=== PATIENT | female | born 1960 | race Caucasian/White ===

== ENCOUNTER 2023-05-07 08:36 | Outpatient (OUT) | payer MEDICARE, SELFPAY ==
[2023-05-07 09:22] LABS: Basophils Percent Auto 0.8 % (0.2-2.0); Eosinophils Absolute Auto 0.4 10^3/uL (0.0-0.7); Eosinophils Percent Auto 8.2 % (0.9-7.0); Hematocrit 39.1 % (36.0-48.0); Hemoglobin 13.1 g/dL (12.0-16.0); Immature Granulocytes Abs Auto 0.01 10^3/uL (0.00-0.03); Immature Granulocytes Pct Auto 0.2 % (0.0-0.5); Lymphocytes Absolute Auto 1.3 10^3/uL (1.2-3.8); Lymphocytes Percent Auto 24.9 % (20.5-60.0); Mean Corpuscular HGB Conc 33.5 g/dL (29.9-35.2); Mean Corpuscular Hemoglobin 29.4 pg (26.7-34.0); Mean Corpuscular Volume 87.9 fL (81.0-99.0); Mean Platelet Volume 11.1 fL (9.5-13.5); Monocytes Absolute Auto 0.3 10^3/uL (0.3-0.8); Monocytes Percent Auto 5.9 % (1.7-12.0); Neutrophils Absolute Auto 3.1 10^3/uL (1.4-6.5); Platelet Count 244 10^3/uL (150-450); Red Blood Count 4.45 10^6/uL (4.20-5.40); Red Cell Distribution Width 13.5 % (11.0-15.0); White Blood Count 5.1 10^3/uL (4.0-11.0)
== END 2023-05-07 08:37 | disposition home or self-care (01) ==
LOC: LAB 08:40
PROVIDERS: PCP Family Medicine
DX: H02.839 Dermatochalasis of unspecified eye, unspecified eyelid (principal)
CPT/HCPCS: 36415; 85025

== ENCOUNTER 2023-06-03 09:04 | Outpatient (OUT) | payer MEDICARE, SELFPAY ==
--- NOTE | 2023-06-03 09:12 | XR_ITS ---
[address] [address] Patient Name: RADHA ALONZO MRN: [id number] date: 1960 Sex: F Assigned Patient Location: [facility] Current Patient Location: [facility] Accession/Order Number: [id number] Exam Date: 06/03/2023 09:17 Report Date: 06/03/2023 10:06 At the request of: DORON BAUMANN Procedure: XR shoulder RT min 2V EXAM: XR shoulder RT min 2V HISTORY: Right Shoulder Pain M25.511 COMPARISON: None. TECHNIQUE: 3 views FINDINGS: No acute fracture or dislocation. Mild degenerative change of the acromioclavicular and glenohumeral joints. Unremarkable soft tissues. XR/XR shoulder RT min 2V IMPRESSION: Mild degenerative changes as above. Electronically authenticated by: ELIZABETH MCLAUGHLIN Date: 06/03/2023 10:06
== END 2023-06-03 09:05 | disposition home or self-care (01) ==
LOC: RAD 09:04
PROVIDERS: PCP Family Medicine; Visit Provider Orthopaedic Surgery
DX: M25.511 Pain in right shoulder (principal)
CPT/HCPCS: 73030

== ENCOUNTER 2024-05-26 09:53 | Outpatient (OUT) | payer MEDICARE, SELFPAY ==
--- NOTE | 2024-05-26 | CONS_ITS ---
CONSULTATION DATE: 05/26/2024 TO: Dr. Duran CHIEF COMPLAINT: Includes right sided groin pain/hip pain. HISTORY OF PRESENT ILLNESS: Review of systems, past medical/surgical history were obtained and documented on the health questionnaire and is available upon request. She is a 64-year-old female who recently underwent an L4-5 lumbar interbody fusion, details of which are unavailable. Prior to the fusion, she reports she had been having right groin pain for approximately one year. She reports her lower back pain is dramatically improved after a successful fusion; however, she has had some residual right sided groin pain and hip pain post surgically, which has not improved from the surgery. She rates it between 4-7/10 pain, sharp in character, increased with activity such as weight bearing maneuvers, transitioning maneuvers. She feels most comfortable in the semi-recumbent position. She denies any change in bowel and bladder habits, or new sensorimotor change in the lower extremities. She has been prescribed Tylenol and tizanidine. She reports she has been not using them recently, and her RAFFY on today?s visit is 45%. EXAM: Her examination is notable for patient having no clinical radiculopathy or myelopathy involving the lower extremities. She did have positive right sided FABERs sign with a moderate amount of tenderness of her right adductor jeremy and mild pain with right hip flexion. IMPRESSION: Patient with chronic pain secondary to right hip, possibly some degenerative joint disease. RECOMMENDATIONS: Obtain right hip films and patient with a diagnostic right hip joint injection under fluoroscopic guidance. I have asked her to resume her tizanidine, 4 mg pills, half a pill at h.s. As part of providing excellent, safe, comprehensive care, the following was completed at our patient's visit: 1. A medication reconciliation and review to ensure accurate knowledge of current/active medications, including asking our patients to inform us about any [id number]-[id number] medications or herbal remedies/nutritional supplements/alternative remedies. 2. A review to specifically ensure our patients have had annual screening for: elevated body mass index (BMI, see intake chart for exact total), tobacco use, screening for depression, and screening for unhealthy alcohol use. When screening is concerning, patients are provided with education and the specific recommendation to discuss the concerning health issue and treatment options with their primary care provider. RADHA
== END 2024-05-26 09:54 | disposition home or self-care (01) ==
LOC: PM 09:57
PROVIDERS: PCP Family Medicine; Visit Provider Anesthesiology Pain Medicine
DX: M25.551 Pain in right hip (principal)
CPT/HCPCS: 73502; G0463

== ENCOUNTER 2024-05-26 11:15 | Outpatient (OUT) | payer MEDICARE, SELFPAY ==
--- NOTE | 2024-05-26 11:26 | XR_ITS ---
The [address] [address] Patient Name: RADHA ALONZO MRN: [id number] date: 1960 Sex: F Assigned Patient Location: [facility] Current Patient Location: Accession/Order Number: [id number] Exam Date: 05/26/2024 11:31 Report Date: 05/27/2024 06:44 At the request of: TERESO VARELA Procedure: XR hip RT min 2V PROCEDURE: XR hip RT min 2V HISTORY: Right Hip Pain COMPARISON: XR hip right 11/23/2015 FINDINGS: BONES:No fracture, acute abnormality, or significant arthropathy. SOFT TISSUES:No visible soft tissue swelling. EFFUSION:None visible. OTHER: Negative. XR/XR hip RT min 2V IMPRESSION: 1. No acute bone abnormality or significant degenerative joint disease. Electronically authenticated by: DORON HERNANDEZ Date: 05/27/2024 06:44
== END 2024-05-26 11:16 | disposition home or self-care (01) ==
LOC: RAD 11:22
PROVIDERS: PCP Family Medicine; Visit Provider Anesthesiology Pain Medicine
DX: M25.551 Pain in right hip (principal)
CPT/HCPCS: 73502

== ENCOUNTER 2024-06-23 07:43 | Day surgery (SDC) | payer MEDICARE, SELFPAY ==
--- OUTSIDE RECORDS SUMMARY | 2024-06-23 07:48 | XMS_ITS | CCD ---
Author Organization [facility] Inform ion Partnership [facility] Care Team Providers Care Sour Bleaching Pleater Name Role Phone Unknown, Referring Provider Unavailable Unav MODESTO Macdonald Primary Care Physician Adilene Cantor Unavailable Unavailable RACHEL, DR SHIRLEY Davenport Admitting Unavailable RACHEL, DR SHIRLEY Davenport Consulting Unavailable WEST, DR SHIRLEY Davenport Attending Unavailable WEST, DR SHIRLEY Davenport Attending Unavailable WEST, DR SHIRLEY Davenport Admitting Unavailable WEST, DR SHIRLEY Davenport Consulting Unavailable WEST, DR SHIRLEY Davenport Admitting Unavailable WEST, DR SHIRLEY Davenport Attending Unavailable REFERRAL, SELF Attending Unavailable REFERRAL, SELF Referring Unavailable DAGMAR NIEVES Consulting Unavailable REFERRAL, SELF Admitting Unavailable DAGMAR NIEVES Consulting Unavailable LIZBETH, MODESTO Consulting Unavailable LIZBETH, MODESTO Consulting Unavailable LIZBETH, DAGMAR Taylor Admitting Unavailable DAGMAR NIEVES Attending Unavailable DAGMAR NIEVES Referring Unavailable Herberth GIBBS Attending Unavailable Tyler Stern Admitting Unavailable Leena, Tyler Ross Attending Unavailable Tyler Stern Referring Unavailable Johnathan ELMORE, Bk Henriquez Attending Unavailab remedios Nieves DO, Modesto Pedersen Primary Care Unavailab remedios Nieves DO, Modesto Pedersen Primary Care Unavailab Katarzyna ELMORE, Bk Henriquez Attending Unavailab remedios Mann MD, Bk Henriquez Attending Unavailab remedios Nieves DO, Modesto Pedersen Primary Care Unavailab remedios Mann MD, Bk Henriquez Attending Unavailab le Lizbeth SANTOYO, Modesto Pedersen Primary Care Unavailab remedios Nieves DO, Modesto Pedersen Referring Unavailab Favian Wyatt PA-C Attending Unavail able Lizbeth SANTOYO, Modesto Pedersen Primary Care Unavailab Katarzyna ELMORE, Bk Henriquez Attending Unavailab le Lizbeth SANTOYO, Modesto Pedersen Primary Care UnavailRENETTA Chaves Attending Unavailable KAMI HERNÁNDEZ Attending Unavailable MODESTO NIEVES Referring Unavailable KAMI HERNÁNDEZ Referring Unavailable DAGMAR NIEVES Attending Unavailable DAGMAR NIEVES Referring Unavailable KAMI HERNÁNDEZ Referring Unavailable FAVIAN GODWIN Referring Unavailable NOEMI COOK Attending Unavailable FAVIAN GODWIN Referring Unavailable NOEMI COOK Attending Unavailable FAVIAN GODWIN Referring Unavailable REE LIEBERMAN Attending Unavailable KAMI HERNÁNDEZ Attending Unavailable RENETTA FINK Referring Unavailable ZOILA JUAREZIN Fallon Referring Unavailable MODESTO NIEVES Primary Care Unavailable ANN MANNIE A Admitting Unavailable ANN, MANNIE A Attending Unavailable ANN MANNIE A Referring Unavailable MANNIE CURRIE Attending Unavailable MODESTO NIEVES Primary Care Unavailable ANN, MANNIE A Attending Unavailable ANN MANNIE A Referring Unavailable MODESTO NIEVES Primary Care Unavailable Allergies Allergy Classification Reported Allergen(s) Allergy Type Date of Onset Reaction(s) Facility (18 sources) Etodolac; Translations: [etodolac] Drug Allergy 9 Unknown, Itching [facility] (2 sources) Etzanda; Translations: [Lodine] Drug Allergy [facility] Rep[facility] Medications Current Medications Medication Drug Class(es) Dates Sig (Normalized) Sig (Original) acetaminophen 325 mg / HYDROcodone bitartrate 5 mg oral tablet (14 sources) Opioid Agonist Start: 08-02-2021 [facility] 325 mg-5 mg oral tablet See Instructions, for pain, 40 tab(s), Refill(s) 0, 1-2 tab(s) Oral q4hr, [facility]/pharmacy #[id number], 160, cm, 07/28/21 12:35:00 EDT, Height/Length Dosing, 65.3, kg, 07/28/21 12:35:00 EDT, Weight Dosing Start Date: 08/02/21 Status: Ordered Start: 07-28-2021 take 1 tablet by hayes th every six hours as needed for pain acetaminophen-hydrocodone 325 mg-5 mg or al tablet 1 tab(s), Oral, q6hr as needed for pain, Refill(s) 0 Start Date: 07/28/21 Status: Ordered aspirin 81 mg delayed release oral tablet (7 sources) Platelet Aggregation Inhibitor, Nonsteroidal Anti-inflammatory Drug Start: 05-02-2022 take 1 mg by mouth once daily aspirin 81 mg Oral EC Tab mg tab(s), Oral, Daily, Refills(s) 0 Start Date: 05/02/22 Status: Ordered Biotin (7 sources) Start: 05-02-2022 biotin Oral, Daily, Refills(s) 0 Start Date: 05/02/22 Status: Ordered Calcium (7 sources) Phosphate Binder, Calcium Start: 09-18-2016 take 600 mg by mouth twice daily Calcium 600+D 600 mg, Oral, BID, Refill(s) 0, Prophylaxis Start Date: 09/18/16 Status: Ordered celecoxib 100 mg oral capsule (7 sources) Nonsteroidal Anti-inflammatory Drug Start: 05-31-2021 take 1 capsule by mouth twice daily as needed for pain CeleBREX 100 mg Cap 100 mg = 1 cap(s), Oral, BID, PRN Pain, # 60 cap(s), Refills(s) 0, Pharmacy: [facility]/pharmacy #[id number], 160, cm, 05/11/21 12:28:00 EDT, Height/Length Dosing, 66.8, kg, 05/11/21 12:28:00 EDT, Weight Dosing Start Date: 05/31/21 Status: Ordered CoQ10 100 mg oral capsule (7 sources) Start: 05-02-2022 take 1 mg by mouth once daily CoQ10 100 mg oral capsule mg cap(s), Oral, Daily, Refills(s) 0 Start Date: 05/02/22 Status: Ordered docusate sodium 100 mg oral capsule (7 sources) Start: 08-02-2021 take 1 capsule by mouth twice daily as needed for constipation Colace 100 mg Cap 100 mg = 1 cap(s), Oral, BID, PRN for constipation, # 20 cap(s), Refills(s) 0, Pharmacy: [facility]/pharmacy #[id number], 160, cm, 07/28/21 12:35:00 EDT, Height/Length Dosing, 65.3, kg, 07/28/21 12:35:00 EDT, Weight Dosing Start Date: 08/02/21 Status: Ordered estradiol 1 mg oral tablet (14 sources) Estrogen Start: 09-18-2016 estradiol 1 mg Tab 1 mg = 1 tab(s), Oral, TueThuSat, Refills(s) 0, Menopause Start Date: 09/18/16 Status: Ordered Start: 09-18-2016 estradiol 0.5 mg Tab 1 mg = 2 tab(s), Oral, MonWedFri, Refills(s) 0, Menopause Start Date: 09/18/16 Status: Ordered hydroCHLOROthiazide 12.5 mg / losartan potassium 50 mg oral tablet (2 sources) Thiazide Diuretic, Angiotensin 2 Receptor Alejandro Start: 05-02-2022 take 1 tablet by mouth once daily hydrochlorothiazide-losartan 12.5 mg-50 mg Tab tab(s), Oral, Daily, Refill(s) 0 Start Date: 05/02/22 Status: Ordered lisinopril 20 mg oral tablet (2 sources) Angiotensin Converting Enzyme Inhibitor Start: 05-31-2021 take 20 mg by mouth once daily lisinopril 20 mg, Oral, Daily, High blood pressure Start Date: 05/31/21 Status: Ordered magnesium citrate (7 sources) Start: 05-02-2022 magnesium citrate Oral, Refill(s) 0 Start Date: 05/02/22 Status: Ordered Aleve (7 sources) Nonsteroidal Anti-inflammat ory Drug Start: 05-02-2022 take 1 mg by mouth every twelve hours Aleve mg, Oral, q12hr, Refills(s) 0 Start Date: 05/02/22 Status: Ordered polyethylene glycol 3350 474739 mg / potassium chloride 1480 mg / sodium bicarbonate 5720 mg / sodium chloride 79291 mg powder for oral solution (2 sources) Osmotic Laxative Start: 05-02-2022 NuLYTELY Fernando oral powder for reconstitution See Instructions, 1 EA, Refill(s) 0, Prior to colonoscopy., [facility]/pharmacy #[id number], 161.2, cm, 05/02/22 10:00:00 EDT, Height/Length Dosing, 67.2, kg, 05/02/22 10:00:00 EDT, Weight Dosing Start Date: 05/02/22 Status: Ordered Vitamin C 500 mg Tab (2 sources) Start: 07-28-2021 take 1 tablet by mouth twice daily Vitamin C 500 mg Tab 500 mg = 1 tab(s), Oral, BID, Prophylaxis Start Date: 07/28/21 Status: Ordered vitamin K2 (5 sources) Start: 07-25-2022 take 1 ug by mouth once daily Vitamin K2 mcg, Oral, Daily, Refill(s) 0 Start Date: 07/25/22 Status: Ordered zinc acetate 50 mg oral capsule (7 sources) Start: 05-02-2022 take 1 capsule by mouth three times daily zinc acetate 50 mg oral capsule 50 mg = 1 cap(s), Oral, TID, on an empty stomach 1 hour before or 2 hours after eating, # 250 cap(s), Refills(s) 0 Start Date: 05/02/22 Status: Ordered Problems Problem Classification Problem Date Documented Date Episodic/Chronic Essential hypertension (14 sources) Hypertensive disorder 07-28-2021 Chronic Genitourinary symptoms and ill-defined conditions (1 source) Unspecified abnormal findings in urine; Translations: [Unspecified abnormal findings in urine] Onset: 04-03-2024 Episodic Osteoarthritis (7 sources) Osteoarthritis 05-31-2021 Chronic Other aftercare (1 source) Encounter for therapeutic drug level monitoring; Translations: [Encounter for therapeutic drug level monitoring] Onset: 04-03-2024 Episodic Other aftercare (1 source) 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; Translations: [long-term (current) use of anticoagulants] Onset: 04-03-2024 Episodic Other connective tissue disease (2 sources) Other bursal cyst, unspecified site; Translations: [Other bursal cyst, unspecified site] Onset: 03-31-2024 Episodic Other connective tissue disease (1 source) Synovial cyst Onset: 04-10-2024 Episodic Other nervous system disorders (1 source) Other acute postprocedural pain; Translations: [Other acute postprocedural pain] Onset: 04-10-2024 Episodic Other non-traumatic joint disorders (1 source) Pain in left knee; Translations: [Left knee pain, unspecified chronicity] Episodic Residual codes; unclassified (2 sources) Family history of malignant neoplasm of digestive organ; Translations: [Family history of malignant neoplasm of digestive organs] Onset: 05-02-2022 Episodic Residual codes; unclassified (8 sources) Family history of polyp of colon; Translations: [Family history of colonic polyps] Onset: 05-02-2022 Episodic Residual codes; unclassified (7 sources) Family history of cancer of colon 05-02-2022 Episodic Residual codes; unclassified (1 source) Pain, unspecified; Translations: [Pain, unspecified] Onset: 03-24-2024 Episodic Unclassified (1 source) Consult Onset: 03-31-2024 Unclassified (1 source) Low back pain, unspecified; Translations: [Low back pain, unspecified] Onset: 03-31-2024 Results Test Name Value Interpretation Reference Range Facility CREATININEon 04-11-2024 Creatinine [Mass/Vol] 0.67 mg/dL Normal 0.40-1.00 [facility] Comment on above: Result Comment: METH OD TRACEABLE TO IDMS STANDARD Performed By: #### U A #### [facility] ([id number]) [address] [place] [address] eGFR (CKD-EPI) NON-RACE DEPENDENT >90 Normal >[address] [facility] Comment on above: Result Comment: Reported eGFR is based on the CKD-EPI 2020 equation that does not use a race coefficient. Performed By: #### U A #### [facility] ([id number]) [address], [address] [place] [address] HGB AND HCTon 04-11-2024 Hematocrit (Bld) [Volume fraction] 36.1 % Normal 35-[address] [facility] Comment on above: Performed By: #### U A #### [facility] ([id number]) [address], [address] [place] [address] Hemoglobin (Bld) [Mass/Vol] 12.3 g/dL Normal 11.7-15.[address] [facility] Comment on above: Performed By: #### U A #### [facility] ([id number]) [address], [address] [place] [address] FL FLUORO GUIDANCE SPINAL PU NCTURE OPERATIVEon 04-10-2024 FL FLUORO GUIDANCE SPINAL PUNCTURE OPERATIVE FL FLUORO GUIDANCE SPINAL PUNCTURE OPERATIVE EXAM: FL FLUORO GUIDANCE SPINAL PUNCTURE OPERATIVE CLINICAL INDICATIONS: FLUORO IN O.R.#15 FOR POSTERIOR LUMBAR FUSION L4-5 IMPRESSION: Fluoro Time: 30 seconds Cumulative reference Air Kerma Dose: 12.8 mGy For the purpose of documentation, fluoroscopic guidance was provided for: Lumbar fusion. A radiologist was not present during the procedure. Please refer to the dedicated operative note, for complete characterization. Finalized by Quan Velez on 04/10/2024 2:44 PM Normal [facility] XR SPINE LUMBAR 2 OR 3 VWSon 04-10-2024 XR SPINE LUMBAR 2 OR 3 VWS XR SPINE LUMBAR 2 OR 3 VWS History: [Post fusion] [Lumbar radiographs demonstrate placement of L4 and L5 pedicle screws and L4-5 laminectomy since 03/12/2024. Gas is present within the prominent subcutaneous tissues overlying the surgical site. Hardware appears intact without fracture or malposition.] Impression: [Unremarkable radiographs status post L4-5 laminectomy and fusion.] Finalized by Silverio Ventura MD on 04/10/2024 5:16 PM Normal [facility] CBC AND AUTO DIFFon 04-03-20 24 ABSOLUTE BASOPHIL 0.0 X10E9/L Normal 0.0-0.2 [facility] Comment on above: Performed By: #### C LEONILA, 61787-4, PINR, 21780-6, CMP #### [facility] ([id number]) [address], [address] [place] [address] ABSOLUTE NEUTROPHIL 2.0 X10E9/L Normal 1.5-6.6 [facility] Comment on above: Performed By: #### C LEONILA, 39146-9, PINR, 29908-5, CMP #### [facility] ([id number]) [address] [place] [address] Basophils/100 WBC (Bld) 0.9 % Normal [facility] Comment on above: Performed By: #### C BCA, 56201-1, PINR, 33164-7, CMP #### [facility] ([id number]) [address], [address] [place] [address] Eosinophils (Bld) [#/Vol] 0.2 10*3/uL Normal 0.0-0.[address] [facility] Comment on above: Performed By: #### Jon BCA, 70777-9, PINR, 23160-0, CMP #### [facility] ([id number]) [address], [address] [place] [address] Eosinophils/100 WBC (Bld) 4.8 % Normal [facility] Comment on above: Performed By: #### C LEONILA, 92924-9, PINR, 58590-4, CMP #### [facility] ([id number]) [address] [place] [address] Erythrocyte distribution width (RBC) [Ratio] 13.9 % Normal 11.5-15.[address] [facility] Comment on above: Performed By: #### Jon KEEN, 09562-2, PINR, 23498-0, CMP #### [facility] ([id number]) [address] [place] [address] Hematocrit (Bld) [Volume fraction] 40.4 % Normal 35-[address] [facility] Comment on above: Performed By: #### Jon KEEN, 65747-5, PINR, 41433-9, CMP #### [facility] ([id number]) [address], [address] [place] [address] Hemoglobin (Bld) [Mass/Vol] 13.8 g/dL Normal 11.7-15.[address] [facility] Comment on above: Performed By: #### Jon KEEN, 43923-2, PINR, 68893-3, CMP #### [facility] ([id number]) [address] [place] [address] Lymphocytes (Bld) [#/Vol] 1.1 10*3/uL Normal 1.0-3.[address] [facility] Comment on above: Performed By: #### Jon KEEN, 36978-0, PINR, 41538-1, CMP #### [facility] ([id number]) [address], [address] [place] [address] Lymphocytes/100 WBC (Bld) 29.5 % Normal [facility] Comment on above: Performed By: #### C LEONILA, 60024-3, PINR, 88332-8, CMP #### [facility] ([id number]) [address] [place] [address] MCH (RBC) [Entitic mass] 29.9 pg Normal 27-[address] [facility] Comment on above: Performed By: #### Jon KEEN, 17003-7, PINR, 24810-7, CMP #### [facility] ([id number]) [address] [place] [address] MCHC (RBC) [Mass/Vol] 34.1 g/dL Normal 32-36 [facility] Comment on above: Performed By: #### Jon KEEN, 46593-5, PINR, 20729-4, CMP #### [facility] ([id number]) [address] [place] [address] MCV (RBC) [Entitic vol] 88 fL Normal 80-[address] [facility] Comment on above: Performed By: #### Jon KEEN, 83593-0, PINR, 01878-4, CMP #### [facility] ([id number]) [address] [place] [address] Monocytes (Bld) [#/Vol] 0.5 10*3/uL Normal 0-0.[address] [facility] Comment on above: Performed By: #### Jon KEEN, 11086-1, PINR, 32843-4, CMP #### [facility] ([id number]) [address] [place] [address] Monocytes/100 WBC (Bld) 12.2 % Normal [facility] Comment on above: Performed By: #### Jon BCA, 09373-8, PINR, 83963-9, CMP #### [facility] ([id number]) [address] [place] [address] Neutrophils/100 WBC (Bld) 52.6 % Normal [facility] Comment on above: Performed By: #### C BCA, 79215-4, PINR, 81243-3, CMP #### [facility] ([id number]) [address], [facility] [address] [place] [address] Platelet mean volume (Bld) [Entitic vol] 10.0 fL Normal 7-[address] [facility] Comment on above: Performed By: #### C BCA, 62833-7, PINR, 30286-6, CMP #### [facility] ([id number]) [address] [address] [place] [address] Platelets (Bld) [#/Vol] 227 10*3/uL Normal 150-[address] [facility] Comment on above: Performed By: #### Jon BCA, 40442-7, PINR, 11153-5, CMP #### [facility] ([id number]) [address], [facility] [address] [place] [address] RBC COUNT 4.60 X10E12/L Normal 3.80-5.[address] [facility] Comment on above: Performed By: #### Jon BCA, 75067-6, PINR, 91652-6, CMP #### [facility] ([id number]) [address] [address] [place] [address] WBC (Bld) [#/Vol] 3.8 10*3/uL Low 4.0-11.0 [facility] Comment on above: Performed By: #### C BCA, 64242-6, PINR, 50396-7, CMP #### [facility] ([id number]) [address], [facility] [address] [place] [address] COMPREHENSIVE METABOLIC PANE Rush 04-03-2024 Albumin [Mass/Vol] 3.8 g/dL Normal 3.2-5.3 [facility] Comment on above: Performed By: #### Jon BCA, 95683-0, PINR, 64876-6, CMP #### [facility] ([id number]) [address] [place] [address] ALP [Catalytic activity/Vol] 81 U/L Normal 39-[address] [facility] Comment on above: Performed By: #### C BCA, 07618-1, PINR, 01892-8, CMP #### [facility] ([id number]) [address] [place] [address] ALT [Catalytic activity/Vol] 15 U/L Normal 0-[address] [facility] Comment on above: Performed By: #### C BCA, 66645-5, PINR, 39655-8, CMP #### [facility] ([id number]) [address] [place] [address] Anion gap [Moles/Vol] 11 mmol/L Normal 5-15 [facility] Comment on above: Performed By: #### C BCA, 19312-3, PINR, 31459-0, CMP #### [facility] ([id number]) [address] [place] [address] AST [Catalytic activity/Vol] 19 U/L Normal 0-[address] [facility] Comment on above: Performed By: #### C BCA, 75372-2, PINR, 91836-0, CMP #### [facility] ([id number]) [address], [address] [place] [address] Bilirubin [Mass/Vol] 0.6 mg/dL Normal 0.3-1.2 [facility] Comment on above: Performed By: #### C BCA, 55406-9, PINR, 31535-0, CMP #### [facility] ([id number]) [address] [place] [address] Calcium [Mass/Vol] 8.6 mg/dL Normal 8.5-10.5 [facility] Comment on above: Performed By: #### C BCA, 99644-3, PINR, 31145-2, CMP #### [facility] ([id number]) [address] [place] [address] Chloride [Moles/Vol] 104 mmol/L Normal 98-109 [facility] Comment on above: Performed By: #### C BCA, 77432-1, PINR, 52032-7, CMP #### [facility] ([id number]) [address] [place] [address] CO2 [Moles/Vol] 26 mmol/L Normal 22-[address] [facility] Comment on above: Performed By: #### C BCA, 15128-6, PINR, 12589-7, CMP #### [facility] ([id number]) [address], [facility] [address] [place] [address] Creatinine [Mass/Vol] 0.68 mg/dL Normal 0.40-1.00 [facility] Comment on above: Result Comment: METH OD TRACEABLE TO IDMS STANDARD Performed By: #### C BCA, 19725-4, PINR, 78836-1, CMP #### [facility] ([id number]) [address], [facility] [address] [place] [address] eGFR (CKD-EPI) NON-RACE DEPENDENT >90 Normal >[address] [facility] Comment on above: Result Comment: Reported eGFR is based on the CKD-EPI 2021 equation that does not use a race coefficient. Performed By: #### C BCA, 20805-9, PINR, 76173-3, CMP #### [facility] ([id number]) [address] [place] [address] Glucose [Mass/Vol] 92 mg/dL Normal 65-99 [facility] Comment on above: Performed By: #### C BCA, 40157-4, PINR, 28590-8, CMP #### [facility] ([id number]) [address] [place] [address] Potassium [Moles/Vol] 3.6 mmol/L Normal 3.5-5.0 [facility] Comment on above: Performed By: #### C BCA, 10444-6, PINR, 19932-9, CMP #### [facility] ([id number]) [address] [place] [address] Protein [Mass/Vol] 6.4 g/dL Normal 6.0-8.0 [facility] Comment on above: Performed By: #### C BCA, 71294-1, PINR, 14034-6, CMP #### [facility] ([id number]) [address] [place] [address] Sodium [Moles/Vol] 141 mmol/L Normal 134-146 [facility] Comment on above: Performed By: #### C BCA, 26834-7, PINR, 69654-2, CMP #### [facility] ([id number]) [address] [place] [address] Urea nitrogen [Mass/Vol] 8 mg/dL Normal 5-[address] [facility] Comment on above: Performed By: #### C BCA, 46720-2, PINR, 72757-8, CMP #### [facility] ([id number]) [address] [place] [address] Lipid 1996 panelon 4 Cholesterol [Mass/Vol] 208 mg/dL High 150-[address] [facility] Comment on above: Performed By: #### C BCA, 17406-7, PINR, 62181-6, CMP #### [facility] ([id number]) [address] [place] [address] Cholesterol in HDL [Mass/Vol] 56 mg/dL Normal >[address] [facility] Comment on above: Result Comment: HDL <40 mg/dL - High Risk HDL > or = 40mg/dL- Desirable HDL >60 mg/dL - Negative Risk Performed By: ###Jonathan Webb BCA, 92932-3, PINR, 49831-3, CMP #### [facility] ([id number]) [address] [place] [address] Cholesterol in LDL [Mass/Vol] 128 mg/dL Normal <[address] [facility] Comment on above: Result Comment: LDL <100 mg/dL - Desirable LDL >160 mg/dL - High Risk Performed By: ###Jonathan Webb BCA, 71569-6, PINR, 69893-1, CMP #### [facility] ([id number]) [address] [place] [address] Cholesterol in VLDL [Mass/Vol] 24 mg/dL Normal 0-[address] [facility] Comment on above: Performed By: ###Jonathan Webb BCA, 50209-9, PINR, 49954-0, CMP #### [facility] ([id number]) [address], [facility] [address] [place] [address] CHOLESTEROL:HDL 3.7 Normal 1.0-5.[address] [facility] Comment on above: Performed By: ###Jonathan Webb BCA, 51105-4, PINR, 93179-6, CMP #### [facility] ([id number]) [address] [place] [address] Triglyceride [Mass/Vol] 118 mg/dL Normal 27-[address] [facility] Comment on above: Performed By: ###Jonathan Webb BCA, 08232-7, PINR, 56138-0, CMP #### [facility] [facility] ([id number]) [address], [address] [place] [address] PROTIME AND INRon 04-03-2024 INR Coag (PPP) [Relative time] 1.0 {INR} Normal 0.8-1.[address] [facility] Comment on above: Performed By: #### C LEONILA, 11746-9, PINR, 94521-3, CMP #### [facility] ([id number]) [address], [address] [place] [address] PT Coag (PPP) [Time] 11.9 s Normal 9.8-13.2 [facility] Comment on above: Performed By: #### C LEONILA, 76067-5, PINR, 46072-6, CMP #### [facility] ([id number]) [address] [place] [address] URINALYSISon 04-03-2024 Bilirubin Ql (U) Negative Normal NEG [facility] Comment on above: Performed By: #### U A #### [facility] ([id number]) [address], [address] [place] [address] BLOOD/HGB Negative Normal NEG [facility] Comment on above: Performed By: #### U A #### [facility] ([id number]) [address], [address] [place] [address] Color (U) YELLOW Normal YELLOW [facility] Comment on above: Performed By: #### U A #### [facility] ([id number]) [address], [address] [place] [address] Glucose Ql (U) Negative Normal NEG [facility] Comment on above: Performed By: #### U A #### [facility] ([id number]) [address], [address] [place] [address] Ketones Ql (U) Negative Normal NEG [facility] Comment on above: Performed By: #### U A #### [facility] ([id number]) [address] [place] [address] Leukocyte esterase Test strip Ql (U) Negative Normal NEG [facility] Comment on above: Performed By: #### U A #### [facility] ([id number]) [address], [address] [place] [address] Nitrite Ql (U) Negative Normal NEG [facility] Comment on above: Performed By: #### U A #### [facility] ([id number]) [address], [address] [place] [address] pH (U) 6.5 [pH] Normal 5.0-8.[address] [facility] Comment on above: Performed By: #### U A #### [facility] ([id number]) [address], [address] [place] [address] Protein Ql (U) Negative Normal NEG [facility] Comment on above: Performed By: #### U A #### [facility] ([id number]) [address] [place] [address] Specific gravity (U) [Rel density] 1.006 Normal 1.003-1.[address] [facility] Comment on above: Performed By: #### U A #### [facility] ([id number]) [address] [place] [address] TURBIDITY CLEAR Normal CLEAR [facility] Comment on above: Performed By: #### U A #### [facility] ([id number]) [address] [place] [address] Urobilinogen (U) [Mass/Vol] mg/dL Normal <1.[address] [facility] Comment on above: Performed By: #### U A #### [facility] ([id number]) [address] [place] [address] URINE CULTUREon 04-03-2024 Bacteria identified Cx Nom (U) CULTURE RESULTS 10-50,000 ORGANISMS/mL NORMAL UROGENITAL NIGEL Normal [facility] Comment on above: Performed By: #### 6 30-4 #### [facility] ([id number]) [address] [place] [address] aPTT Coag (PPP) [Time]on aPTT Coag (Bld) [Time] 30 s Normal 26-[address] [facility] Comment on above: Performed By: #### C BCA, 85699-4, PINR, 78788-9, CMP #### [facility] ([id number]) [address] [place] [address] XR CHEST 2 VWSon 03-31-2024 XR CHEST 2 VWS XR CHEST 2 VWS PA and lateral chest: HISTORY: Preoperative exam. Anesthesia clearance. 2 views of the chest are obtained. Cardiac and mediastinal contours are within normal limits. Lungs are clear. There is no vascular congestion, effusion, or pneumothorax. IMPRESSION: No acute findings. Finalized by Terrell Ibrahim MD on 03/31/2024 1:46 PM Normal [facility] .UA Microscp Aon 03-25-2024 UA Bacteria Present Abnormal Absent [facility] Comment on above: Performed By: #### . Urinalysis Microscopic Auto #### [address] [address] UA RBC Quant 0 /HPF Normal 0-5 [facility] Comment on above: Performed By: #### . Urinalysis Microscopic Auto #### [address] [address] UA Squepi Cells Quant 1 /HPF Normal 0-29 [facility] Comment on above: Performed By: #### . Urinalysis Microscopic Auto #### [address] [address] UA WBC Quant 0 /HPF Normal 0-5 [facility] Comment on above: Performed By: #### . Urinalysis Microscopic Auto #### [facility] [address] [place] [address] .eGFRon 03-25-2024 GFR/1.73 sq M.predicted MDRD (S/P/Bld) [Vol rate/Area] mL/min/{1.73_m2} Normal >=60 [facility] Comment on above: Result Comment: [facility] Laboratories have implemented the eGFR calculation approach that does not have a coefficient for race and that conforms to the NKF-ASN Task Force Recommendations. Stages of Chronic Kidney Disease GFR Stage 3a Mild to moderate loss of kidney function 59 to 45 Stage 3b Moderate to severe loss of kidney function 44 to 33 Stage 4 Severe loss of kidney function 29 to 15 Stage 5 Kidney failure Less than 15 GFR calculated using the CKD-Epi Creatinine Equation (2020): eGFR = 142 X min(SCr/?, 1)? X max(SCr /?, 1)-1.200 X 0.9938Age X 1.012 [if female] Abbreviations/Units: eGFR (estimated glomerular filtration rate) = mL/min/1.73 m2 SCr (standardized serum creatinine) = mg/dL ? = 0.7 (females) or 0.9 (males) ? = -0.241 (females) or -0.302 (males) min = indicates the minimum of SCr/? or 1 max = indicates the maximum of SCr/? or 1 Age = years Performed By: #### E GFR #### [facility] [address] [place] [address] ABO/Rhon 03-25-2024 ABO/Rh ABO/Rh: B POS Normal [facility] Comment on above: Performed By: #### A BORH #### [facility] (UNKNOWN) [address] [place] [address] ABSC Autoon 03-25-2024 ABSC Auto Negative Normal [facility] Comment on above: Performed By: #### A SA #### [facility] ([facility]KNOWN) [address] [place] [address] CBC w/ Diffon 03-25-2024 Erythrocyte distribution width (RBC) [Ratio] 13.3 % Normal 11.6-14.8 [facility] Comment on above: Performed By: #### C BC #### [address] [address] Hematocrit (Bld) [Volume fraction] 40.6 % Normal 36.0-46.0 [facility] Comment on above: Performed By: #### C BC #### [address] [address] Hemoglobin (Bld) [Mass/Vol] 13.5 g/dL Normal 12.0-16.0 [facility] Comment on above: Performed By: #### C BC #### [address] [address] MCH (RBC) [Entitic mass] 29.1 pg Normal 27.0-35.0 [facility] Comment on above: Performed By: #### C BC #### [address] [address] MCHC 33.4 % Normal 31.0-37.0 [facility] Comment on above: Performed By: #### C BC #### [address] [address] MCV (RBC) [Entitic vol] 87.3 fL Normal 80.0-100.0 [facility] Comment on above: Performed By: #### C BC #### [address] [address] Platelet 235 x10*3/mcL Normal 150-450 [facility] Comment on above: Performed By: #### C BC #### [address] [address] Platelet mean volume (Bld) [Entitic vol] 9.7 fL Normal 6.7-10.6 [facility] Comment on above: Performed By: #### C BC #### [address] [address] RBC 4.65 x10*6/mcL Normal 3.80-5.20 [facility] Comment on above: Performed By: #### C BC #### [address] [address] WBC 4.4 x10*3/mcL Low 4.5-11.0 [facility] Comment on above: Performed By: #### C BC #### [address] [address] CMPon 03-25-2024 Albumin [Mass/Vol] 3.9 g/dL Normal 3.2-4.9 [facility] Comment on above: Performed By: #### C OMP #### [address] [address] Albumin/Globulin [Mass ratio] 1.2 {ratio} Normal 1.1-2.2 [facility] Comment on above: Performed By: #### C OMP #### [address] [address] Alk Phos 87 IU/L Normal 32-91 [facility] Comment on above: Performed By: #### C OMP #### [address] [address] ALT [Catalytic activity/Vol] 26 U/L Normal 14-54 [facility] Comment on above: Performed By: #### C OMP #### [address] [address] Anion gap [Moles/Vol] 10 mmol/L Normal 4-12 [facility] Comment on above: Performed By: #### C OMP #### [address] [address] AST [Catalytic activity/Vol] 24 U/L Normal 15-41 [facility] Comment on above: Performed By: #### C OMP #### [address] [address] Bili Total 0.6 mg/dL Normal 0.3-1.2 [facility] Comment on above: Performed By: #### C OMP #### [address] [address] Calcium [Mass/Vol] 8.7 mg/dL Normal 8.5-10.3 [facility] Comment on above: Performed By: #### C OMP #### [address] [address] Chloride [Moles/Vol] 106 mmol/L Normal 98-110 [facility] Comment on above: Performed By: #### C OMP #### [address] [address] CO2 [Moles/Vol] 24 mmol/L Normal 22-32 [facility] Comment on above: Performed By: #### C OMP #### [address] [address] Creatinine [Mass/Vol] 0.72 mg/dL Normal 0.44-1.03 [facility] Comment on above: Performed By: #### C OMP #### [address] [address] Glucose [Mass/Vol] 92 mg/dL Normal 70-99 [facility] Comment on above: Performed By: #### C OMP #### [address] [address] Potassium [Moles/Vol] 3.7 mmol/L Normal 3.4-4.8 [facility] Comment on above: Performed By: #### C OMP #### [address] [address] Protein [Mass/Vol] 7.2 g/dL Normal 6.5-8.1 [facility] Comment on above: Performed By: #### C OMP #### [address] [place] [address] Sodium [Moles/Vol] 140 mmol/L Normal 133-142 [facility] Comment on above: Performed By: #### C OMP #### [address] [address] Urea nitrogen [Mass/Vol] 11 mg/dL Normal 8-26 [facility] Comment on above: Performed By: #### C OMP #### [address] [address] Urea nitrogen/Creatinine [Mass ratio] 15.3 mg/mg Normal 10.0-20.0 [facility] Comment on above: Performed By: #### C OMP #### [address] [address] Diff Autoon 03-25-2024 Baso Absolute 0.0 x10*3/mcL Normal 0.0-0.2 [facility] Comment on above: Performed By: #### . Automated Diff #### [address] [address] Basophils/100 WBC (Bld) 0.6 % Normal 0.0-1.5 [facility] Comment on above: Performed By: #### . Automated Diff #### [address] [address] Eos Absolute 0.2 x10*3/mcL Normal 0.0-0.4 [facility] Comment on above: Performed By: #### . Automated Diff #### [address] [address] Eosinophils/100 WBC (Bld) 3.5 % Normal 0.0-5.4 [facility] Comment on above: Performed By: #### . Automated Diff #### [address] [address] Lymph Absolute 1.1 x10*3/mcL Normal 1.0-4.8 [facility] Comment on above: Performed By: #### . Automated Diff #### [address] [address] Lymphocytes/100 WBC (Bld) 24.2 % Low 27.2-40.8 [facility] Comment on above: Performed By: #### . Automated Diff #### [address] [address] Waldo Absolute 0.2 x10*3/mcL Normal 0.1-1.1 [facility] Comment on above: Performed By: #### . Automated Diff #### [address] [address] Monocytes/100 WBC (Bld) 5.0 % Normal 3.7-11.9 [facility] Comment on above: Performed By: #### . Automated Diff #### [address] [address] Neutro Absolute 2.9 x10*3/mcL Normal 1.8-7.7 [facility] Comment on above: Performed By: #### . Automated Diff #### [address] [address] Neutro Auto 66.7 % Normal 47.2-70.8 [facility] Comment on above: Performed By: #### . Automated Diff #### [address] [address] PTon 03-25-2024 PT Coag (PPP) [Time] 10.7 s Normal 9.2-12.0 [facility] Comment on above: Performed By: #### P TINR #### [address] [address] INR Coag (PPP) [Relative time] 1.0 {INR} Normal <=3.5 [facility] Comment on above: Result Comment: INR has no normal range. INR Therapeutic range is: 2.0-3.0 (AF, CVA, TIAs, DVT prophylaxis, acute DVT) 2.5[facility]3.5 [facility] Performed By: #### P TINR #### [address] [address] PTTon 03-25-2024 aPTT Coag (Bld) [Time] 23.9 s Normal 19.5-28.2 [facility] Comment on above: Performed By: #### . Urinalysis Microscopic Auto #### [address] [address] UA w Culture if Indon 2023 Color (U) Colorless Normal Yellow [facility] Comment on above: Performed By: #### U CI #### [address] [address] Ketones Ql (U) Negative Normal Negative [facility] Comment on above: Performed By: #### U CI #### [facility] [address] [place] [address] UA Blood Negative Normal Negative [facility] Comment on above: Performed By: #### U CI #### [facility] [address] [place] [address] UA Clarity Clear Normal Clear [facility] Comment on above: Performed By: #### U CI #### [facility] [address] [place] [address] UA Glucose Normal Normal Negative [facility] Comment on above: Performed By: #### U CI #### [facility] [address] [place] [address], [place] [address] UA Leukocyte Esterase Negative Normal Negative [facility] Comment on above: Performed By: #### U CI #### [facility] [address] [place] [address], [place] [address] UA Nitrite Negative Normal Negative [facility] Comment on above: Performed By: #### U CI #### [facility] [address] [place] [address], [place] [address] UA pH 6.0 Normal 4.5 - 7.8 [facility] Comment on above: Performed By: #### U CI #### [facility] [address] [place] [address], [place] [address] UA Protein Negative Normal Negative [facility] Comment on above: Performed By: #### U CI #### [facility] [address] [place] [address] UA Source Clean Catch Normal [facility] Comment on above: Performed By: #### U CI #### [facility] [address] [place] [address], [place] [address] UA Spec Grav 1.004 Normal 1.003-1.035 [facility] Comment on above: Performed By: #### U CI #### [facility] [address] [place] [address], [place] [address] UA Urobilinogen Normal Normal 0.2 - 1.0 [facility] Comment on above: Performed By: #### U CI #### [address] [place] [address] Urobilinogen (U) [Mass/Vol] Negative Normal Negative [facility] Comment on above: Performed By: #### U CI #### [place] [id number] Neurosurgery Office/Clinic N richard 03-19-2024 Neurosurgery Office/Clinic Note Chief Complaint Patient is being seen to review XR of back. History of Present Illness The purpose of this visit is to review imaging and symptoms and history and discuss treatment. History was reviewed and is accurate. No change in her symptoms. She tried 2 sessions of PT and she could not tolerate it due to severe pain. 03/11/2024 Visit: This is a very pleasant 64 year old female seen in referral at the request of Kami Hernández CNP for lumbar radiculopathy. She has a history of right L4-5 laminectomy in [place] in 2015, did well after that surgery. She developed symptoms about a month ago on the left side, similar to her previous symptoms prior to surgery. The pain is in the left buttocks, radiates into the left hamstring and calf. It is worse with weightbearing, up to 10/10 in severity. She has intermittent tingling in the left foot with any pressure. Sitting with her left leg flexed helps. She needs to walk bent forward due to the pain. No symptoms on the right, no bladder or bowel dysfunction, she is not tripping or stumbling. Back: Left low back pain x 1 month Legs: Severe pain into the left buttocks, hamstring and calf with numbness and tingling in the foot, 10/10 in severity. No symptoms on the right Care team: Dr. Nieves, PCP Conservative treatments: Prednisone 20 mg x 5 days, Flexeril, [facility], heat, meloxicam Medical history: as listed Social history: , retired. No tobacco, alcohol or drug use Medications: As listed Surgical history: Right L4-5 laminectomy in [place], 2016 Left knee replacement Family history: As listed Imaging: MRI lumbar 03/05/2024: Grade 1 L4-5 anterior listhesis, prior right L4-5 laminectomy. L4-5 facet arthropathy with 8 mm synovial cyst on the left and 5 mm on the right, moderate B/L foraminal narrowing. L5-S1 disc bulge with extensive facet degenerative changes. No significant canal or foraminal narrowing. [1] Review of Systems General Adult ROS Fatigue: Yes Weakness: Yes Cardiovascular EENMT Gastrointestinal Genitourinary Hematologic/Lymphatic Musculoskeletal Back pain: Yes Other Musculoskeletal: Yes Neurological Numbness: Yes Psychiatric Respiratory Skin Physical Exam Vitals & Measurements HR: 76 (Peripheral) BP: 140/82 HT: 160 cm WT: 63.3 kg WT: 63.3 kg (Dosing) BMI: 24.73 Additional Vitals BP Position/Location: Sitting, Left arm General: Alert and oriented, well nourished, no acute distress Eye: PERRL, EOMI, normal conjunctiva HENT: Normocephalic, clear tympanic membranes, normal hearing, moist oral mucosa, no scleral icterus, no sinus tenderness Neck: Supple, non-tender, no carotid bruits, no JVD, no lymphadenopathy Lungs: Clear to auscultation and percussion, non-labored respiration Heart: Normal rate, regular rhythm, no murmur, gallop or edema Abdomen: Soft, non-tender, non-distended, normal bowel sounds, no masses]. Musculoskeletal: [Normal range of motion and strength, no tenderness or swelling Skin: Skin is warm, dry and pink, no rashes or lesions Psychiatric: Cooperative, appropriate mood and affect Neurologic: EOMI, PERRLA, TML, FS, No drift 5/5 marshall UE strength 5/5 marshall LE strength 2+ UE reflexes except absent left achilles 2+ LE reflexes Clonus absent Assessment/Plan Assessment: 1. Left low back pain with severe radiculopathy x 1 month, progressive, constant, 10/10 in severity 2. MRI lumbar 03/05/2024: Grade 1 L4-5 anterior listhesis, prior right L4-5 laminectomy. L4-5 facet arthropathy with 8 mm synovial cyst on the left and 5 mm synovial cyst on the right, moderate B/L foraminal narrowing. L5-S1 disc bulge with extensive facet degenerative changes. No significant canal or foraminal narrowing. 3. s/p Right L4-5 hemilaminotomy in [place], 2015 for previous synovial cyst 4. lumbar flex/ex xrays: 4mm L4-5 anterolisthesis without intersegmental instability 5. degenerative grade one spondylolisthesis L4-5 Plan: I recommend L4-5 laminectomy fixation fusion. Described risk included bleeding, infection, neurological injury, infection, blindness, csf leak, medical complication, adjacent disease, hardware failure, , continued pain, and need for further procedures or surgeries. She would like to proceed with surgery. Time Spent with the Patient I have personally spent 30 minutes on this date, directly related to today's patient visit, including pre and post visit work, for this date of service. Time listed does not include time spent on separately billable services. Problem List/Past Medical History Ongoing Anemia Sinusitis Historical Breast lump Fibroids Procedure/Surgical History Manipulation of the knee joint Cervical laminectomy Biopsy of breast (1997) Abdominal hysterectomy (2006) [place] Knee Scope, Single Menisectomy (2008) [place] Nasal/Sinus Endoscopy, open maxill sinus (2012) History of total knee arthroplasty (05/31/2021) Medications biotin, 1 mg, Oral, Daily cholecalcife (more content not included)... Normal [facility] XR LUMBAR SPINE AP/LAT/FLEX/ EXTon 03-12-2024 XR LUMBAR SPINE AP/LAT/FLEX/EXT FINDINGS: Vertebral body heights are normal. Mild disc space loss thoracolumbar region. Sclerosis involves posterior elements of the mid and distal lumbar spine and sacroiliac joints; however, no acute spondylolysis is seen. No acute fracture is identified. Soft tissues are relatively unremarkable. Flexion and extension: T12-L1 - L3-4: Normal alignment, no change L4-5: 4 mm anterolisthesis, no change L5-S1: 2 mm retrolisthesis, no change IMPRESSION: Mild distal arthritis, minimal spondylolisthesis, no change with flexion/extension TRANSCRIBED BY: ELECTRONICALLY SIGNED BY: Slaav De Jesus MD Normal Not Available Neurosurgery Office/Clinic N oteon 03-11-2024 Neurosurgery Office/Clinic Note Chief Complaint Cyst on spine consult History of Present Illness This is a very pleasant 64 year old female seen in referral at the request of Kami Hernández CNP for lumbar radiculopathy. She has a history of right L4-5 laminectomy in [place] in 2016, did well after that surgery. She developed symptoms about a month ago on the left side, similar to her previous symptoms prior to surgery. The pain is in the left buttocks, radiates into the left hamstring and calf. It is worse with weightbearing, up to 10/10 in severity. She has intermittent tingling in the left foot with any pressure. Sitting with her left leg flexed helps. She needs to walk bent forward due to the pain. No symptoms on the right, no bladder or bowel dysfunction, she is not tripping or stumbling. Back: Left low back pain x 1 month Legs: Severe pain into the left buttocks, hamstring and calf with numbness and tingling in the foot, 10/10 in severity. No symptoms on the right Care team: Dr. Nieves, PCP Conservative treatments: Prednisone 20 mg x 5 days, Flexeril, [facility], heat, meloxicam Medical history: as listed Social history: , retired. No tobacco, alcohol or drug use Medications: As listed Surgical history: Right L4-5 laminectomy in [place], 2016 Left knee replacement Family history: As listed Imaging: MRI lumbar 03/05/2024: Grade 1 L4-5 anterior listhesis, prior right L4-5 laminectomy. L4-5 facet arthropathy with 8 mm synovial cyst on the left and 5 mm on the right, moderate B/L foraminal narrowing. L5-S1 disc bulge with extensive facet degenerative changes. No significant canal or foraminal narrowing. Review of Systems General Adult ROS Fatigue: No Weakness: Yes Cardiovascular Chest pain/pressure: No EENMT Vision Changes: Yes Gastrointestinal Abdominal pain: No Constipation: No Diarrhea: No Heartburn: No Nausea: No Vomiting: No Genitourinary Frequency: No Urgency: No Urinary Incontinence: No Hematologic/Lymphatic Musculoskeletal Back pain: Yes Other Musculoskeletal: Yes Neurological Numbness: Yes Psychiatric Respiratory Cough: No Shortness of breath: No Skin Rash: No Physical Exam Vitals & Measurements HR: 68 (Peripheral) BP: 140/72 HT: 160 cm WT: 63.3 kg WT: 63.3 kg (Dosing) BMI: 24.73 Additional Vitals BP Position/Location: Sitting, Left arm General: Alert and oriented, well nourished, no acute distress. Eye: Normal conjunctiva, no scleral icterus. HENT: Normocephalic, atraumatic, oral mucosa pink and moist. Neck: Supple. Pulmonary: Clear to auscultation, non-labored respiration. Cardiovascular: Normal rate, regular rhythm, no murmur, no edema. Abdomen: Soft, nontender Skin: Normal temperature and texture. Psychiatric: Appropriate judgment and insight, appropriate mood and affect. NEURO EXAM: Pupils are equal bilaterally and reactive to light. No eye deviation at primary gaze. Extraocular movements are full. Face is symmetric, facial sensation intact, tongue midline Hearing is intact to finger rub Motor: Upper Extremity Strength: 5/5 Lower Extremity Strength: 5/5 Reflexes: Reflexes of the upper extremities are 2+ Reflexes of the lower extremities are 2+ patella right, absent left (previous TKA), Achilles 1+ Rooney?s sign is negative. No clonus. Sensation: Grossly intact to light touch throughout Gait: Posture is normal. Gait is in a flexed position with a limp Able to walk on toes and heels Musculoskeletal: Spine: no visible deformities or step offs Lumbar incision well-healed Tender to palpation midline low back and left SI joint Straight leg raising negative Assessment/Plan Assessment: 1. Left low back pain with severe radiculopathy x 1 month, progressive, constant, 10/10 in severity 2. MRI lumbar 03/05/2024: Grade 1 L4-5 anterior listhesis, prior right L4-5 laminectomy. L4-5 facet arthropathy with 8 mm synovial cyst on the left and 5 mm on the right, moderate B/L foraminal narrowing. L5-S1 disc bulge with extensive facet degenerative changes. No significant canal or foraminal narrowing. 3. Right L4-5 laminectomy in [place], 2015 for previous synovial cyst Plan: 1. Upright x-ray lumbar spine with flexion and extension to evaluate for instability 2. Will refer to physical therapy 3. Follow-up with Dr. Mann We reviewed imaging together in the office. We also discussed treatment options. Strength and sensation are intact, no bladder or bowel dysfunction, therefore we can start with conservative treatment. We discussed physical therapy, however she may not be able to tolerate it. She received a prescription for [facility] last evening from her PCP. I recommended the dynamic x-rays and PT. All questions answered. Patient is in agreement with this plan. Time Spent with the Patient I have personally spent 58 minutes on this date, directly related to today's patient visit, including pre and post visit work, for this date of service. Ti (more content not included)... Normal [facility] Provider Letteron 03-11-2024 Provider Letter Modesto Nieves DO [address] [place] [address] Re: Shirin Marc Date of Visit: 03/11/2024 Dear Modesto Nieves DO, Thank you for your referral and allowing me to contribute to the care of your patient: Shirin Marc. Attached is my office note where you will find my assessment and recommendations from our encounter. My office?s contact information: [facility] [address] [place], [phone] Let me know if you have any questions or concerns. Sincerely, DAT Dejesus Providers: The following document(s) were included in the letter: March 11, 2024 12:19:37 EDT - (03/11/2024) Neurosurgery Office Visit Note Normal [facility] MR LUMBAR SPINE WO CONTRASTo n 02-28-2024 MR LUMBAR SPINE WO CONTRAST EXAMINATION: MR LUMBAR SPINE WO CONTRAST HISTORY: Back pain with left-sided sciatica, difficulty walking. History of prior laminectomy with cyst removal. No recent injury. TECHNIQUE: Routine lumbosacral spine MR protocol without gadolinium. CONTRAST: None. COMPARISON: Radiographs 02/28/2024. RESULT: Counting reference: Lumbosacral junction. For the purposes of this report, L5-S1 is considered the last well-formed disc space. 5 lumbar type vertebral bodies. Alignment: Grade 1 anterolisthesis of L4 on L5 measuring around 3-4 mm. Alignment otherwise anatomic. Bone marrow signal: No evidence for recent fracture. No pathologic marrow infiltration. Changes from prior right-sided laminectomy at L4-L5. Small hemangioma at T11. Conus: The conus is within normal limits of signal intensity and morphology. Paraspinal soft tissues: Small T2 hyperintense right renal cyst. Lower thoracic spine: Visualized lower thoracic canal and foramina without significant narrowing. T12-L1: Disc bulge. No significant canal or foraminal narrowing. L1-L2: Disc bulge. No significant canal or foraminal narrowing. L2-L3: Disc bulge. Facet degenerative changes. No significant canal or foraminal narrowing. L3-L4: Broad-based disc bulge. Facet degenerative changes. No significant canal or foraminal narrowing. L4-L5: Anterolisthesis with disc uncovering. Possible annular fissure. Postsurgical changes. Extensive facet degenerative changes. Facet synovial cysts posteriorly measuring around 8 mm on the left and 5 mm on the right. Moderate bilateral foraminal narrowing without significant canal narrowing. L5-S1: Broad-based disc bulge. Extensive facet degenerative changes. No significant canal or foraminal narrowing. Sacrum and iliac wings: The visualized sacrum and iliac wings are within normal limits. IMPRESSION: Postsurgical and degenerative changes lumbar spine as discussed. ELECTRONICALLY SIGNED BY: Ron Bull MD Normal Not Available XR LUMBAR SPINE 4+ VIEWS WIT H FLEXION EXTENSIONon 02-28-2024 XR LUMBAR SPINE 4+ VIEWS WITH FLEXION EXTENSION FINDINGS: No scoliosis. Mild disc space loss thoracolumbar region. Mild sclerosis involves posterior elements of the mid and distal lumbar spine and sacroiliac joints; however, no acute spondylolysis is seen. Mild central end plate depression throughout the lumbar spin. No acute fracture is identified. Soft tissues are relatively unremarkable. Flexion and extension: T12-L1 through L3-4: Normal alignment, no change. L4-5: 1 mm anterolisthesis, with flexion 5 mm with extension. L5-S1: Several millimeters retrolisthesis, no change. IMPRESSION: 1. Distal lumbar arthritis, minimal motion L4-5. 2. No acute fracture. TRANSCRIBED BY: ELECTRONICALLY SIGNED BY: Slava De Jesus MD Normal Not Available MRI Hip w/o Contrast Righton 06-12-2023 MRI Hip w/o Contrast Right Exam Date/Time: 06/07/2023 18:48 EDT Reason for Exam: [id number] Report IMPRESSION: Mild degenerative changes right hip. No acute osseous findings. Mild symmetric bilateral greater trochanteric bursitis. EXAMINATION: MRI Hip w/o Contrast Right History: Right hip pain. Multiple falls. Technique: Routine MRI of the pelvis and hip(s). With small [id number] the right hip. Comparison: None RESULT: RIGHT HIP: No evidence for fracture. No joint effusion. Mild degenerative changes with small areas of full-thickness chondral loss of the superior weightbearing aspect with small amount of subchondral cystic change involving the acetabulum. Degenerative signal within the labrum. LEFT HIP: Large [id number] with degenerative changes. SI JOINTS: Normal appearing sacroiliac joints bilaterally. PUBIC SYMPHYSIS: Normal appearance. BONE MARROW: There is no evidence of fracture, bone bruise, marrow replacing lesion or osteonecrosis. TENDONS: The rectus femoris tendons, iliopsoas tendons, hamstring tendons, hip adductor and abductor tendons appear to be intact bilaterally. Small amount of edema signal at the greater trochanters bilaterally suggestive of bursitis. MUSCLE: Muscle bulk and signal intensity are within normal limits. NERVES: The visualized portions of the lumbosacral plexus and sciatic nerves appear to be within normal limits. VISCERAL PELVIS: Limited evaluation of the visceral pelvis is unremarkable. LOWER LUMBAR SPINE: Limited evaluation with degenerative changes. OTHER: No other significant abnormality. Report Ordering Provider: DORON BAUMANN FINAL REPORT Dictated: 06/12/2023 10:02 am Ron Bull MD Signed (Electronic Signature): 06/12/2023 10:02 am Signed by: oRn Bull MD Transcribed by: JERROD Technologist: JUNAID Technical Comments None Normal [facility] Consent for Treatmenton Consent for Treatment [id number] 0CD:127 Normal [facility] RAD - MRI Screening Formon 0 06-07-2023 RAD - MRI Screening Form [id number] 00CD:127 Normal [facility] Consent for Treatmenton 05-09 Consent for Treatment [id number] 0CD:127 Normal [facility] MA Mamm Diag w/CAD if perf a nd 3D RTon 06-06-2023 MA Mamm Diag w/CAD if perf and 3D RT Exam Date/Time: 06/06/2023 09:55 EDT Reason for Exam: R92.8 Other abnormal and inconclusive findings on diagnostic imaging of breast Report IMPRESSION: BIRADS 2 BENIGN FINDINGS, NORMAL INTERVAL FOLLOW-UP.12 MONTH RECALL. CLINICAL HISTORY: R92.8 Other abnormal and inconclusive findings on diagnostic imaging of breast. COMPARISON: 05/17/2023. COMMENT: Spot compression CC and ML views and ML tomosynthesis views of the right breast were obtained. The right breast is heterogeneously dense, which may obscure small masses. There are small nodular densities partially delineated from dense breast tissue in the anterior right breast. There are tiny stable benign-appearing calcifications in the anterior right breast. The examination was reviewed with Computer Aided Detection. An ultrasound was obtained at all clock face positions and in the central/ retroareolar region of the right breast. At 9:00, there is a 0.5 cm diameter cyst cluster, with a tiny calcification at the periphery of this. At 10:00, there is a 1.1 cm diameter cyst. Also at 10:00, there are 0.4 cm, 0.5 cm, and 0.6 cm diameter cysts. At 11:00, there is a 1.3 cm diameter cyst. Posterior to the nipple, there is a ductal structure, without intraluminal debris or nodularity. Breast Density: Yes Mammography is very important to your health. The current [employer] and National [employer] Cancer Network guidelines recommends annual mammography beginning at age 40. This facility utilizes a reminder system to ensure all patients receive reminder notifications at the appropriate time based on the recommendations of this exam. Board Certified Radiologists. Accredited by the ACR and FDA. Ordering Provider: DAGMAR NIEVES FINAL REPORT Dictated: 06/06/2023 3:39 pm Dagmar Sanchez M.D. Signed (Electronic Signature): 06/06/2023 3:39 pm Signed by: Dagmar Sanchez M.D. Transcribed by: JERROD Technologist: JOHNNIE Assessment: BI-RADS Category 2-Benign finding Recommendation: Normal interval follow-up Normal [facility] US Breast Unilateral Rt Comp leteon 06-06-2023 US Breast Unilateral Rt Complete Exam Date/Time: 06/06/2023 10:24 EDT Reason for Exam: R92.8 Other abnormal and inconclusive findings on diagnostic imaging of breast Report PLEASE REFER TO THE MAMMOGRAM REPORT. Ordering Provider: DAGMAR NIEVES FINAL REPORT Dictated: 06/06/2023 3:40 pm Dagmar Sanchez M.D. Signed (Electronic Signature): 06/06/2023 3:40 pm Signed by: Dagmar Sanchez M.D. Transcribed by: JERROD Technologist: PO Samuel [facility] Physician Orderon 06-04-2023 Physician Order [id number] 0CD:127 Normal [facility] Physician Orderon 05-29-2023 Physician Order [id number] 0CD:127 Normal [facility] Physician Order [id number] 0CD:127 Normal [facility] MA Mamm Screen w/CAD if perf and 3D Bilon 05-22-2023 MA Mamm Screen w/CAD if perf and 3D Marshall Exam Date/Time: 05/17/2023 10:33 EDT Reason for Exam: SCREENING Report IMPRESSION: BIRADS 0 - INCOMPLETE, NEED ADDITIONAL IMAGING EVALUATION Follow-up: RECALL NOW Density: Heterogeneously dense. Vascular calcifications: No. EXAM: MA Mamm Screen w/CAD if perf and 3D [place] DATE: 05/17/2023 CLINICAL HISTORY: SCREENING. COMPARISONS: 05/14/2022, 05/11/2021, and 03/30/2020. TECHNIQUE: Routine full-field digital mammograms and 3D breast tomosynthesis of both breasts were obtained. FINDINGS: Vaguely increasing increasing density lateral anterior right breast versus differences in technique and positioning. Focal compression 2D and 3D mammography and ultrasound of the right breast are suggested. No other significant changes are identified from the prior studies, given differences in technique and positioning. Dense Breast: Yes. CAD analysis was performed and used in the interpretation. Board Certified Radiologists. Accredited by the ACR and FDA. MAMMOGRAPHY IS VERY IMPORTANT TO YOUR HEALTH. THE CURRENT [employer] AND N[employer]WORK GUIDELINES RECOMMENDS ANNUAL MAMMOGRAPHY BEGINNING AT AGE 40. THIS FACILITY UTILIZES A REMINDER SYSTEM TO ENSURE ALL PATIENTS RECEIVE REMINDER NOTIFICATIONS AT THE APPROPRIATE TIME BASED ON THE RECOMMENDATIONS OF THIS EXAM. Report Ordering Provider: REFERRAL, SELF FINAL REPORT Dictated: 05/22/2023 2:49 am Curt Greene MD Signed (Electronic Signature): 05/22/2023 2:49 am Signed by: Curt Greene MD Transcribed by: JERROD Technologist: ADAIR Assessment: BI-RADS Category 0-Incomplete: Need additional imaging evaluation Recommendation: Additional projections Normal [facility] Consent for Treatmenton 05-07 Consent for Treatment [id number] 0CD:127 Normal [facility] Reminderson 07-26-2022 Reminders - From: Olga Moctezuma MA ([facility] Clinical) To: [facility] Clinical; Sent: 07/26/2022 10:47:26 EDT Show up: 04/06/2027 10:47:00 EDT Subject: 5 year surveillance Reminder/Recall Last colonoscopy done 05/15/2022 Repeat 5 years From: Herberth GIBBS MD To: [facility]; Sent: 07/25/2022 08:42:49 EDT Subject: General Message Caller Name: SHIRIN MARC; Caller Number: , M repeat colonoscopy in 5 years Normal [facility] Ambulatory Visit Summaryon 1 Ambulatory Visit Summary SHIRIN MARC :1960 Visit Date:07/25/2022 Ambulatory Visit Instructions Your Diagnosis Family history of colon cancer Your Care Team Attending Physician - Herberth GIBBS MD Primary Care Physician - MODESTO NIEVES DO This Is Your Medications List Contact prescribing physician if questions or concerns acetaminophen-hydrocod one ([facility] 325 mg-5 mg oral tablet) acetaminophen-hydrocod one (acetaminophen-hydroco done 325 mg-5 mg oral tablet) aspirin (aspirin 81 mg Oral EC Tab) biotin calcium-vitamin D (Calcium 600+D) celecoxib (CeleBREX 100 mg Cap) docusate (Colace 100 mg Cap) estradiol (estradiol 0.5 mg Tab) estradiol (estradiol 1 mg Tab) magnesium citrate menaquinone (Vitamin K2) naproxen (Aleve) ubiquinone (CoQ10 100 mg oral capsule) zinc acetate (zinc acetate 50 mg oral capsule) Procedures Performed Colonoscopy (05/15/2022), Manipulation of knee joint under general anesthesia (08/02/2021), Arthroplasty of knee (05/31/2021), Colonoscopy (09/18/2016), Laminectomy (01/06/2016), Hysterectomy (2006), Biopsy of breast (1997), Biopsy of breast (1991), Closed fracture of rib (1975), Fractured skull (1975), Arthroscopy of knee, History of nasal sinus surgery. Discharge Vitals Heart Rate (Peripheral) 65 Blood Pressure 151/93 Height 161 cm Height 63 in Weight 64 kg Weight 140.8 lb BMI 24.69 Medications What How Much When Instructions Unchanged acetaminophen-hydrocod one (acetaminophen-hydroco done 325 mg-5 mg oral tablet) 1 Tablets By Mouth Every 6 hours as needed for as needed for pain Contact prescribing physician if questions or concerns Unchanged acetaminophen-hydrocod one ([facility] 325 mg-5 mg oral tablet) See instructions 1-2 tab(s) Oral q4hr Contact prescribing physician if questions or concerns Unchanged aspirin (aspirin 81 mg Oral EC Tab) By Mouth Every day Contact prescribing physician if questions or concerns Unchanged biotin By Mouth Every day Contact prescribing physician if questions or concerns Unchanged calcium-vitamin D (Calcium 600+D) 600 Milligram By Mouth 2 times a day Contact prescribing physician if questions or concerns Unchanged celecoxib (CeleBREX 100 mg Cap) 1 Capsules By Mouth 2 times a day as needed for Pain Contact prescribing physician if questions or concerns Unchanged docusate (Colace 100 mg Cap) 1 Capsules By Mouth 2 times a day as needed for for constipation Contact prescribing physician if questions or concerns Unchanged estradiol (estradiol 0.5 mg Tab) 2 Tablets By Mouth Saturday Contact prescribing physician if questions or concerns Unchanged estradiol (estradiol 1 mg Tab) 1 Tablets By Mouth Saturday & Saturday Contact prescribing physician if questions or concerns Unchanged magnesium citrate By Mouth Contact prescribing physician if questions or concerns Unchanged menaquinone (Vitamin K2) By Mouth Every day Contact prescribing physician if questions or concerns Unchanged naproxen (Aleve) By Mouth Every 12 hours Contact prescribing physician if questions or concerns Unchanged ubiquinone (CoQ10 100 mg oral capsule) By Mouth Every day Contact prescribing physician if questions or concerns Unchanged zinc acetate (zinc acetate 50 mg oral capsule) 1 Capsules By Mouth 3 times a day on an empty stomach 1 hour before or 2 hours after eating Contact prescribing physician if questions or concerns Allergies Lodine (Itching) etodolac (Unknown) Problems Ongoing - Any problem that you are currently receiving treatment for. Family history of colon cancer Family history of colonic polyps Osteoarthritis Historical - Any problem that you are no longer receiving treatment for. Hypertension Normal [facility] Gastroenterology Office/Clin ic Noteon 07-25-2022 Gastroenterology Office/Clinic Note Chief Complaint follow up colonoscopy HPI Staff Shirin is a 62 y.o. female here for follow up to colonoscopy done 05/15/2022 History of Present Illness Shirin Marc is a 62-year-old white female who underwent a recent screening colonoscopy at [facility]. She has a family history of colon cancer in her mother. She was noted to have a 2 mm polyp located in the cecum that was removed and the result was completely benign. She does have small hemorrhoids. She denies any other GI related symptoms. The patient reports she has anxiety but does not take medication for it. Review of Systems Constitutional: no fever, no chills, no sweats, no weakness Skin: no Jaundice, no rash, no lesions, no petechiae ENMT: no ear pain, no sore throat, no congestion, no hoarseness Respiratory: no shortness of breath, no cough, no orthopnea, no wheezing Cardiovascular: no chest pain, no palpitations, no edema Gastrointestinal: no nausea, no vomiting, no diarrhea, no constipation, no GI bleeding, no abdominal pain, no dysphagia, no bloating, no heartburn Genitourinary: no dysuria, no hematuria, no discharge, no pain Musculoskeletal: no back pain, no trauma Neurologic: no numbness, no sleeping problems Additional ROS info: Except as noted in the above Review of Systems and in the History of Present Illness all other systems have been reviewed and are negative or noncontributory. Physical Exam Vitals & Measurements HR: 65(Peripheral) BP: 151/93 SpO2: 99% HT: 63 in HT: 161 cm WT: 64 kg WT: 140.8 lb BMI: 24.69 Constitutional: Appearance: well developed Skin: Inspection: no rashes, ulcers, icterus, or telangiectasias. Eyes: Conjunctivae/lids: normal conjunctivae and lids. ENMT: Hearing: within normal limits. Lips/Teeth/Gums: normal oral mucosa Neck: Neck: normal motion, central trachea Respiratory: Percussion: thorax normoresonant. Auscultation: normal breath sounds; no rubs, wheezes, rale or ronchi. Cardiovascular: Auscultation: normal rhythm, S1 and S2; no rubs, murmurs or gallop. Peripheral: no edema Gastrointestinal/Abdom en: Abdomen: normal consistency and bowel sounds; no tenderness or masses. Liver/Spleen: normal size and consistency, not palpable. Rectal: deferred Musculoskeletal: Gait/station: normal gait Assessment/Plan 1. Family history of colon cancer (Z80.0: Family history of malignant neoplasm of digestive organs) The patient's mother has a history of colon cancer. She underwent her second screening colonoscopy and noted to have a 2 mm cecal polyp. Pathology was completely benign. The patient was advised to repeat her colonoscopy in 5 years. ATTESTATION: Documentation services were performed after patient or guardian consented to allow Monse Carrasco Karan to record this visit. 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 MICHELLE: Salome Garnett Follow-up No qualifying data available Problem List/Past Medical History Ongoing Family history of colon cancer Family history of colonic polyps Osteoarthritis Historical Hypertension Procedure/Surgical History Colonoscopy (05/15/2022), Manipulation of knee joint under general anesthesia (08/02/2021), Arthroplasty of knee (05/31/2021), Colonoscopy (09/18/2016), Laminectomy (01/06/2016), Hysterectomy (2006), Biopsy of breast (1997), Biopsy of breast (1991), Closed fracture of rib (1975), Fractured skull (1975), Arthroscopy of knee, History of nasal sinus surgery. Medications acetaminophen-hydrocod one 325 mg-5 mg oral tablet, 1 tab(s), Oral, q6hr, PRN, Not taking Aleve, Oral, q12hr aspirin 81 mg Oral EC Tab, Oral, Daily biotin, Oral, Daily Calcium 600+D, 600 mg, Oral, BID CeleBREX 100 mg Cap, 100 mg= 1 cap(s), Oral, BID, PRN, Not taking Colace 100 mg Cap, 100 mg= 1 cap(s), Oral, BID, PRN CoQ10 100 mg oral capsule, Oral, Daily estradiol 0.5 mg Tab, 1 mg= 2 tab(s), Oral, MonWedFri estradiol 1 mg Tab, 1 mg= 1 tab(s), Oral, TueThuSat magnesium citrate, Oral [facility] 325 mg-5 mg oral tablet, See Instructions, PRN, Not taking Vitamin K2, Oral, Daily zinc acetate 50 mg oral capsule, 50 mg= 1 cap(s), Oral, TID Allergies Lodine (Itching) etodolac (Unknown) Social History Alcohol - Denies Alcohol Use, 05/11/2021 Substance Abuse - Denies Substance Abuse, 05/11/2021 Tobacco - Denies Tobacco Use, 05/11/2021 Never (less than 100 in lifetime) Tobacco Use:. Never Smokeless Tobacco Use:., 07/25/2022 Family History Hypotension arterial: Sister and Brother. Metastatic cancer: Mother and Father. Obesity: Brother. Primary malignant neoplasm of colon: Mother. Immunizations Vaccine Date Status influenza virus vaccine, inactivated 07/20/2022 Recorded SARS-CoV-2 (COVID-19) mRNA BNT-162b2 vax 08/29/2021 Recorded influenza virus vaccine, inactivated 07/20/2021 Recorded SARS-CoV-2 (COVID-19) mRNA BNT-162b2 vax 01/10/2021 Recorded SARS-CoV-2 (COVID-19) mRNA BNT-162b2 vax 12/19/2020 Recorded influenza virus vaccine, inactivated 1 (more content not included)... Normal [facility] Comment on above: Result Comment: Elec tronically Signed By: Salome Garnett\.br\Date and Time Signed: 07/25/22 11:45 EDT\.br\Electronically Co-Signed By: Herberth GIBBS MD\.br\Date and Time Co-Signed: 07/25/22 13:54 EDT XR Hip Complete Right*on XR Hip Complete Right* COMPARISON: none FINDINGS: There is no lytic or sclerotic bone lesion. The femoral heads are located. There are bilaterally shallow acetabula. There is no significant degenerative change. There are no radiopaque foreign bodies. The soft tissues are within normal limits. IMPRESSION: There are no acute osseous changes. There are bilateral shallow acetabula. 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 She states has had progressive increasing pain in her left knee for the past 3 to 4 years. She has had conservative treatment with medications and injections without much improvement. She has had x-rays and an MRI. Patient states that she is seeing another orthopedic surgeon who I discussed treatment alternatives of recommending knee replacement surgery she wanted to discuss her treatment options. The pain is not severe but it is getting progressively worse and is significantly limiting her activities. She denies any mechanical symptoms her pain is mostly soreness and stiffness and difficulty standing for prolonged period time. Patient did have a knee scope on her right side a few years ago which gave her some good relief. Location of pain: Left knee medial and posterior Quality of pain: Started has just some soreness but getting progressively worse Modifying factors: Worse going up and down stairs or standing for prolonged period of time Associated signs and symptoms: Stiffness swelling popping clicking grinding no numbness or tingling no locking Previous treatment: Cortisone injections anti-inflammatory medication Past medical history The patient's past medical history, family history, social history, and review of systems were documented on the patient's medical intake form. The medical intake form was reviewed and scanned into the electronic medical record for future use. History is otherwise negative except as stated in the HPI. Physical exam General: Alert and oriented to place, person, and time. No acute distress and breathing comfortably; pleasant and cooperative with the examination. HEENT: Head is normocephalic and atraumatic. Neck: Supple, no visible swelling. Cardiovascular: Good perfusion to the affected extremity. Lungs: No audible wheezing or labored breathing. Abdomen: Nondistended HEME/Lymph : No visible abnormalities bilateral lower extremity Extremity: The affected knee was examined and inspected and was tender to touch along the medial aspect. The patient has catching/locking and occasional mechanical symptoms. The skin was intact without breakdown or open wounds. There was a mild Art exam seen with mild evidence of instability in the collateral ligaments in the anterior posterior plane. There was a negative Blanca's test, pivot shift test, and posterior drawer sign. There was no foot drop, numbness or tingling. Sensation, reflexes, and pulses in the foot and ankle were present. There was an effusion but range of motion was good and straight leg raise testing was normal. The patient had the ability to bear weight but with discomfort. The patient's gait was antalgic secondary to the discomfort. Knee range of motion was 0-115 Diagnostics: I reviewed her MRI and her x-rays which she brought with her on a disc as well as the report and reviewed them with the patient Assessment: Osteoarthritis left knee Treatment plan: 1. The natural history of the condition and its associated treatment alternatives including surgical and nonsurgical options were discussed with the patient at length. 2. I reviewed her MRI and her x-ray images as well as reports that she brought with her from [place] I also reviewed her office notes from her previous physician as well. 3. We discussed continued conservative treatment versus knee arthroscopy versus total knee replacement. The options risks and benefits of all of the above were discussed she is decided she probably wants to proceed with knee replacement surgery and she is very comfortable with her doctor out in [place] so she is can follow back up there I offered to help her if she had any further questions or concerns. 4. All of the patient's questions were answered. This note was prepared using voice recognition software. The details of this note are correct and have been reviewed, and corrected to the best of my ability. Some grammatical areas may persist related to the [employer] software Dagmar Castro MD . Active Problems Problems Left knee pain, unspecified chronicity (869.46) (H25.562) Signatures Electronically signed by : Dagmar Castro MD; May 21 2021 7:03AM EST (Author) [facility] Vital Signs Date Time Vital Sign Value Performing Clinician Facility 07-25-2022 08:32-0400 Blood Pressure Location [employer] [facility] 07-25-2022 08:32-0400 Diastolic blood pressure 93 mm[Hg] [employer] [facility] 07-25-2022 08:32-0400 Heart rate 65 /min [employer] [facility] 07-25-2022 08:32-0400 SaO2% (BldA) [Mass fraction] 99 % [employer] [facility] 07-25-2022 08:32-0400 Systolic blood pressure 151 mm[Hg] Herberth GIBBS [facility] 05-02-2022 10:00-0400 Diastolic blood pressure 82 mm[Hg] Erna Mckeonmetz [facility] 05-02-2022 10:00-0400 Mean blood pressure 106 mm[Hg] Erna Mckeonmetz [facility] 05-02-2022 09:55-0400 Blood Pressure Location Ernasarwat MckeonVeronica [facility] 05-02-2022 09:55-0400 Body temperature 97.34 [degF] Erna Mckeonmetz [facility] 05-02-2022 09:55-0400 Diastolic blood pressure 89 mm[Hg] Erna Mckeonmetz [facility] 05-02-2022 09:55-0400 Heart rate 55 /min Erna Walkerz [facility] 05-02-2022 09:55-0400 SaO2% (BldA) [Mass fraction] 99 % Ernasarwat MckeonVeronica [facility] 05-02-2022 09:55-0400 Systolic blood pressure 154 mm[Hg] Ernasarwat MckeonVeronica [facility] Encounters Encounter Date Encounter Type Care Provider Facility Start: 04-12-2024 End: 04-12-2024 Evaluation and management of inpatient MANNIEANGELIA CURRIE [facility] Start: 04-10-2024 End: 04-12-2024 Evaluation and management of [facility] Start: 04-10-2024 End: 04-11-2024 ambulatory [facility] Start: 04-03-2024 End: 04-03-2024 ambulatory STARFORD Fallon [facility] Start: 04-01-2024 End: 04-01-2024 ambulatory KAMI HERNÁNDEZ Not Available Start: 03-31-2024 End: 03-31-2024 ambulatory [facility] Start: 03-31-2024 Encounter for other preprocedural examination [facility] Start: 03-31-2024 Encounter for other preprocedural examination [facility] Start: 03-31-2024 End: 03-31-2024 ambulatory [facility] Start: 03-25-2024 End: 03-25-2024 ambulatory Modesto Nieves DO Facility:[facility] Start: 03-24-2024 ambulatory [facility] Start: 03-20-2024 ambulatory Bk Mann MD F acility:[facility] Start: 03-19-2024 ambulatory Bk Mann MD F acility:[facility] Start: 03-19-2024 End: 03-19-2024 ambulatory Bk Mann MD [facility] Start: 03-13-2024 End: 03-13-2024 ambulatory NOEMI COOK Not Available Start: 03-12-2024 End: 03-12-2024 ambulatory NOEMI COOK Not Available Start: 03-12-2024 End: 03-12-2024 ambulatory FAVIAN GODWIN Not Available Start: 03-11-2024 End: 03-11-2024 ambulatory Modesto Nieves DO Facility:[facility] Start: 03-05-2024 End: 03-05-2024 ambulatory KAMI Bruce CLIFFNicki Not Available Start: 03-03-2024 End: 03-03-2024 ambulatory DAGMAR Taylor LIZBETH Not Available Start: 02-28-2024 End: 02-28-2024 ambulatory KAMI Bruce CLIFFNicki Not Available Start: 06-07-2023 End: 06-08-2023 ambulatory Tyler Stern Facility:[facility] Start: 06-07-2023 End: 06-07-2023 Patient encounter procedure DORON BAUMANN [facility] Start: 06-06-2023 End: 06-07-2023 ambulatory DAGMAR NIEVES Facility:[facility] Start: 06-06-2023 End: 06-06-2023 Patient encounter procedure DAGMAR NIEVES [facility] Start: 05-17-2023 End: 05-18-2023 ambulatory SELF REFERRAL Facility:[facility] Start: 05-17-2023 End: 05-18-2023 Patient encounter procedure SELF REFERRAL [facility] Start: 05-07-2023 End: 05-28-2023 Pre-admission assessment Tyler Stern [facility] Start: 02-20-[address] SHIRLEY RAMOS Facilit y:[facility] Start: 07-25-2022 End: 07-26-2022 ambulatory [facility] GIBBS [facility] Start: 07-25-2022 End: 07-25-2022 Patient encounter procedure Herberth GIBBS [facility] Start: 06-21-2022 End: 10-05-[address] SHIRLEY RAMOS Facility:[facility] Start: 05-15-2022 End: 05-15-2022 Lab Drop off Herberth GIBBS [facility] Start: 05-02-2022 End: 05-02-2022 Patient encounter procedure Erna Martin [facility] Start: 03-06-2022 End: 06-15-[address] SHIRLEY RAMOS Facility: Start: 05-19-2021 Patient encounter procedure Ref[facility] Provider [facility] Work Phone: Procedures Date Procedure Procedure Detail Performing Clinician Start: 05-15-2022 Colonoscopy Herberth Pedro Start: 08-02-2021 Manipulation of knee joint under general anesthesia Erna Martin Start: 05-31-2021 Arthroplasty of knee Monico Martin Start: 09-18-2016 Colonoscopy Erna pascual Start: 01-06-2016 Laminectomy Erna pascual Start: 10-07-2006 Hysterectomy Erna pascual Start: 10-07-1997 Biopsy of breast Erna S april Start: 10-07-1991 Biopsy of breast Erna S april Start: 10-07-1975 Closed fracture of r ib (disorder) Erna Martin Start: 10-07-1975 Fracture of skull (disorder) Erna Martin Arthroscopy of knee Erna Higgins History of nasal sin us surgery Erna Martin Immunizations Immunization Date Immunization Notes Care Provider Fa estephanie 07-20-2022 influenza virus vaccine, unspecified formulation Herberth GIBBS [facility] 08-29-2021 SARS-CoV-2 (COVID-19 ) mRNA BNT-162b2 vax Kevin SALAM [facility] 07-20-2021 influenza virus vaccine, unspecified formulation Kevin SALAM [facility] 01-10-2021 Pfizer-BioNTech COVID-19 Vacc 30 MCG/0.3ML Intramuscular Suspension Referring Provider Unknown [facility] 12-19-2020 Pfizer-BioNTech COVID-19 Vacc 30 MCG/0.3ML Intramuscular Suspension Referring Provider Unknown [facility] 07-07-2020 influenza virus vaccine, unspecified formulation Kevin SALAM [facility] 07-07-2020 Influenza, injectabl e, Madin [place] Canine Kidney, quadrivalent with preservative Referring Provider Unknown [facility] Work Phone: 07-30-2019 influenza virus vaccine, unspecified formulation Kevin SALAM [facility] 07-30-2019 Influenza, injectabl e, Madin [place] Canine Kidney, preservative free, quadrivalent Referring Provider Unknown [facility] Work Phone: 07-07-2019 influenza virus vaccine, unspecified formulation Kevin SALAM [facility] 07-07-2019 influenza, injectabl e, quadrivalent, preservative free Referring Provider Unknown [facility] Work Phone: 02-16-2019 zoster vaccine recombinant Referring Provider Unknown [facility] 11-13-2018 zoster vaccine recombinant Referring Provider Unknown [facility] 08-01-2018 influenza virus vaccine, live, attenuated, for intranasal use Kevin SALAM [facility] 08-01-2018 influenza, live, intranasal, quadrivalent Referring Provider Unknown [facility] Work Phone: 07-11-2018 influenza virus vaccine, unspecified formulation Kevin SALAM [facility] 07-11-2018 influenza, injectabl e, quadrivalent, preservative free Referring Provider Unknown [facility] Work Phone: 07-15-2017 influenza virus vaccine, unspecified formulation Kevin SALAM [facility] 07-15-2017 influenza, injectabl e, quadrivalent, contains preservative Referring Provider Unknown [facility] Work Phone: 08-14-2016 influenza virus vaccine, unspecified formulation Kevin SALAM [facility] 08-14-2016 influenza, injectabl e, quadrivalent, preservative free Referring Provider Unknown [facility] Work Phone: Payers Date Payer Category Payer Medicare [id number] 2023 Medicare 2023 Unknown 2023 Unknown [id number] 2022 Private Health Insurance 2018 Private Health Insurance [id number] Self-pay 1958 Unknown [id number] 2.16.84 0.1.186102.3.579.2.593 1958 Unknown [id number] 2.16.84 0.1.362327.3.579.2.593 1958 Unknown [id number] 2.16.84 0.1.767466.3.579.2.593 1958 Unknown [id number] 2.16.8 40.1.128115.3.579.2.727 1958 Unknown [id number] 2.16.8 40.1.133101.3.579.2.727 1958 Unknown [id number] 2.16.8 40.1.640033.3.579.2.727 1958 Unknown [id number] 2.16.8 40.1.268086.3.579.2.727 1958 Unknown [id number] 2.16. 840.1.031832.3.579.2.196 1958 Unknown [id number] 2.16. 840.1.482585.3.579.2.196 1958 Unknown [id number] 2.16. 840.1.354451.3.579.2.196 1958 Unknown [id number] 2.16. 840.1.052394.3.579.2.196 1958 Unknown [id number] 2.16. 840.1.750815.3.579.2.196 1958 Unknown [id number] 2.16. 840.1.665722.3.579.2.196 1958 Unknown [id number] 2.16. 840.1.845604.3.579.2.196 1958 Unknown [id number] 2.16.8 40.1.940906.3.579.2.1286 1958 Unknown [id number] 2.16.8 40.1.098300.3.579.2.1286 1958 Unknown [id number] 2.16.8 40.1.825167.3.579.2.1286 1958 Unknown [id number] 2.16.84 0.1.541622.3.579.2.1259 1958 Unknown [id number] 2.16.84 0.1.963855.3.579.2.1259 1958 Unknown [id number] 2.16.84 0.1.168693.3.579.2.1259 1958 Unknown [id number] 2.16.84 0.1.023929.3.579.2.1259 1958 Unknown [id number] 2.16.84 0.1.439586.3.579.2.9 1958 Unknown [id number] 2.16.84 0.1.678780.3.579.2.9 1958 Unknown [id number] 2.16.84 0.1.070526.3.579.2.9 1958 Unknown [id number] 2.16.84 0.1.906352.3.579.2.9 1958 Unknown [id number] 2.16.84 0.1.376351.3.579.2.1259 1958 Unknown [id number] 2.16.8 40.1.248441.3.579.2.1286 1958 Unknown [id number] 2.16.8 40.1.962673.3.579.2.1285 1958 Unknown [id number] 2.16.8 40.1.604374.3.579.2.1285 1958 Unknown [id number] 2.16.8 40.1.256709.3.579.2.1285 1958 Unknown [id number] 2.16.8 40.1.189833.3.579.2.1286 1958 Unknown [id number] 2.16.8 40.1.301935.3.579.2.1286 Social History Date Type Detail Facility Start: 05-02-2022 End: 07-25-2022 Tobacco smoking status Never smoked tobacco (finding) [facility] Tobacco smoking status Never [facility] Sex Assigned At Female [facility] Medical Equipment Procedure Code Equipment Code Equipment Origin al Text Equipment Identifier Dates KNEE TOTAL ROBOT ARTHROPLASTY Toby Sanon DO 05/31/21 Non Biological Knee L [id number] [facility] Start: 05-31-2021 Functional Status Date Assessment Result Facility 05-02-2022 Functional Status N/A [facility] Hospital Discharge instructions 05-02-2022 Note Date & Type Note Facility 05-02-2022 Hospital Discharg e instructions Patient Education 05/02/2022 10:04:01 Colonoscopy, Adult Colonoscopy, Adult A colonoscopy is an exam to look at the entire large intestine. During the exam, a lubricated, flexible tube that has a camera on the end of it is inserted into the anus and then passed into the rectum, colon, and other parts of the large intestine. You may have a colonoscopy as a part of normal colorectal screening or if you have certain symptoms, such as: Lack of red blood cells (anemia). Diarrhea that does not go away. Abdominal pain. Blood in your stool (feces). A colonoscopy can help screen for and diagnose medical problems, including: Tumors. Polyps. Inflammation. Areas of bleeding. Tell a health care provider about: Any allergies you have. All medicines you are taking, including vitamins, herbs, eye drops, creams, and idez-pps-hlnzyrl medicines. Any problems you or family members have had with anesthetic medicines. Any blood disorders you have. Any surgeries you have had. Any medical conditions you have. Any problems you have had passing stool. What are the risks? Generally, this is a safe procedure. However, problems may occur, including: Bleeding. A tear in the intestine. A reaction to medicines given during the exam. Infection (rare). What happens before the procedure? Eating and drinking restrictions Follow instructions from your health care provider about eating and drinking, which may include: A few days before the procedure follow a low-fiber diet. Avoid nuts, seeds, dried fruit, raw fruits, and vegetables. 1 3 days before the procedure follow a clear liquid diet. Drink only clear liquids, such as clear broth or bouillon, black coffee or tea, clear juice, clear soft drinks or sports drinks, gelatin dessert, and popsicles. Avoid any liquids that contain red or purple dye. On the day of the procedure do not eat or drink anything starting 2 hours before the procedure, or within the time period that your health care provider recommends. Up to 2 hours before the procedure, you may continue to drink clear liquids, such as water or clear fruit juice. Bowel prep If you were prescribed an oral bowel prep to clean out your colon: Take it as told by your health care provider. Starting the day before your procedure, you will need to drink a large amount of medicated liquid. The liquid will cause you to have multiple loose stools until your stool is almost clear or light green. If your skin or anus gets irritated from diarrhea, you may use these to relieve the irritation: ?Medicated wipes, such as adult wet wipes with aloe and vitamin E. ?A skin-soothing product like petroleum jelly. If you vomit while drinking the bowel prep, take a break for up to 60 minutes and then begin the bowel prep again. If vomiting continues and you cannot take the bowel prep without vomiting, call your health care provider. To clean out your colon, you may also be given: ?Laxative medicines. ?Instructions about how to use an enema. General instructions Ask your health care provider about: ?Changing or stopping your regular medicines or supplements. This is especially important if you are taking iron supplements, diabetes medicines, or blood thinners. ?Taking medicines such as aspirin and ibuprofen. These medicines can thin your blood. Do not take these medicines before the procedure if your health care provider tells you not to. Plan to have someone take you home from the hospital or clinic. What happens during the procedure? An IV may be inserted into one of your veins. You will be given medicine to help you relax (sedative). To reduce your risk of infection: ?Your health care team will wash or sanitize their hands. ?Your anal area will be washed with soap. You will be asked to lie on your side with your knees bent. Your health care provider will lubricate a long, thin, flexible tube. The tube will have a camera and a light on the end. The tube will be inserted into your anus. The tube will be gently eased through your rectum and colon. Air will be delivered into your colon to keep it open. You may feel some pressure or cramping. The camera will be used to take images during the procedure. A small tissue sample may be removed to be examined under a microscope (biopsy). If small polyps are found, your health care provider may remove them and have them checked for cancer cells. When the exam is done, the tube will be removed. The procedure may vary among health care providers and hospitals. What happens after the procedure? Your blood pressure, heart rate, breathing rate, and blood oxygen level will be monitored until the medicines you were given have worn off. Do not drive for 24 hours after the exam. You may have a small amount of blood in your stool. You may pass gas and have mild abdominal cramping or bloating due to the air that was used to inflate your colon during the exam. It is up to you to get the results of your procedure. Ask your health care provider, or the department performing the procedure, when your results will be ready. Summary A colonoscopy is an exam to look at the entire large intestine. During a colonoscopy, a lubricated, flexible tube with a camera on the end of it is inserted into the anus and then passed into the colon and other parts of the large intestine. Follow instructions from your health care provider about eating and drinking before the procedure. If you were prescribed an oral bowel prep to clean out your colon, take it as told by your health care provider. After your procedure, your blood pressure, heart rate, breathing rate, and blood oxygen level will be monitored until the medicines you were given have worn off. This information is not intended to replace advice given to you by your health care provider. Make sure you discuss any questions you have with your health care provider. Document Released: 09/20/2001 Document Revised: 07/16/2018 Document Reviewed: 12/04/2016 [employer] Patient Education 2020 [employer]. Follow Up Care 04/05/2022 12:55:09 With:Erna Martin CNP Address: When:1 to 2 weeks Comments:Following colonoscopy. [facility] Evaluation + Plan note Radiology Note Date & Type Note Facility Evaluation + Plan note Future Appointments Appointment Date:05/14/2022 08:15:00 AM Scheduled Provider: Location:FT.MAMMOGRAM Appointment Type:MA Screen (FT) Future Scheduled TestsMA Mamm Screen w/CAD if perf and 3D [place] 05/14/22 [facility] Evaluation + Plan note Radiology Note Date & Type Note Facility Evaluation + Plan note Future Appointments Appointment Date:06/07/2023 06:00:00 PM Scheduled Provider: Location:FT.MRI Appointment Type:MRI Hip/Femur (FT) Future Scheduled TestsMRI Hip w/o Contrast Right 06/07/23 [facility] Hospital course Narrative Note Date & Type Note Facility Hospital course Narrative No data available for this section [facility] Hospital Discharge instructions Note Date & Type Note Facility Hospital Discharge instructions No data available for this section [facility] Progress note Note Date & Type Note Facility Progress note No data available for this section [facility] Chief Complaint Lt Knee Pain - X-Rays Today Summary Purpose Family History No Family History Records FoundNo Family History Records FoundNo Family History Records FoundNo Family History Records FoundNo Family History Records FoundNo Family History Records FoundNo Family History Records FoundNo Family History Records Found Advance Directives No Advanced Directives Records FoundNo Advanced Directives Records FoundNo Advanced Directives Records FoundNo Advanced Directives Records FoundNo Advanced Directives Records FoundNo Advanced Directives Records FoundNo Advanced Directives Records FoundNo Advanced Directives Records Found Additional Source Comments INFORMATION SOURCE (unrecogn ized section and content) DATE CREATED AUTHOR 05/22/2021 [employer] DATE CREATED AUTHOR AUTHOR'S ORGANIZ ATION 04/06/2022 [facility] DATE CREATED AUTHOR AUTHOR'S ORGANIZ ATION 02/14/2023 [facility] DATE CREATED AUTHOR AUTHOR'S ORGANIZ ATION 06/13/2023 [facility] DATE CREATED AUTHOR AUTHOR'S ORGANIZ ATION 03/27/2024 [facility] DATE CREATED AUTHOR AUTHOR'S ORGANIZ ATION 04/02/2024 [facility] DATE CREATED AUTHOR AUTHOR'S ORGANIZ ATION 04/02/2024 [facility] EPIC DATE CREATED AUTHOR AUTHOR'S ORGANIZ ATION 04/12/[address] [facility] Care Team (unrecognized sect ion and content) Personnel Name: MODESTO NIEVES DO Address: [address] [place] [address], [address] Name: Adilene Cantor Personnel Name: MODESTO NIEVES DO Address: [address] [place] [address], [address] Name: Adilene Cantor Personnel Name: MODESTO NIEVES DO Address: Address: [address] [place] [address], [facility] [address], [facility] Name: Adilene Cantor Personnel Name: MODESTO NIEVES DO Address: Address: [address] [place] [address], [facility] [address], [facility] Name: Adilene Cantor Personnel Name: MODESTO NIEVES DO Address: Address: [address] [place] [address], [facility] [address], [facility] [facility] Name: Adilene Cantor Personnel Name: MODESTO NIEVES DO Address: Address: [address] [place] [address], [facility] [address], [facility] Name: Adilene Cantor Personnel Name: MODESTO NIEVES DO Address: Address: [address] [place] [address], [facility] [address], [address] Name: Adilene Cantor FOR RECORDS PERTAINING TO PATIENTS WHO ARE OR HAVE BEEN ENROLLED IN A CHEMICAL DEPENDENCY/SUBSTANCEABUSE PROGRAM, SOME INFORMATION MAY BE OMITTED. This clinical summary was aggregated from multiple sources. Caution should be exercised in using it in the provision of clinical care. This summary normalizes information from multiple sources, and as a consequence, information in this document may materially change the coding, format and clinical context of patient data. In addition, data may be omitted in some cases. CLINICAL DECISIONS SHOULD BE BASED ON THE PRIMARY CLINICAL RECORDS. [facility] [employer] [facility]. provides no warranty or guarantee of the accuracy or completeness of information in this document.
[2024-06-23 08:16] VITALS: BP 160/90; PULSE 76; TEMP 36.7; O2SAT 98
[2024-06-23 08:48] VITALS: BP 203/90; PULSE 74; O2SAT 99
[2024-06-23 08:49] VITALS: BP 198/88; PULSE 73; O2SAT 99
[2024-06-23] MEDS: METHYLPREDNISOLONE ACETATE 40 MG/ML VIAL INJ (08:52)
[2024-06-23] MEDS: BUPIVACAINE HCL 0.25% PF 25 MG/10 ML VIAL 4 ML INJ (08:52)
[2024-06-23] MEDS: IOHEXOL 240 MG/ML - 10 ML VIAL 12 MG INJ (08:52)
--- NOTE | 2024-06-23 09:30 | W.PM.PROCNOT ---
Date of procedure: 06/23/24 Pre-op diagnosis: Right hip pain Post-op diagnosis: same as pre-op Procedure: Procedure: Right Hip joint injection Pre & postoperative diagnosis: pain secondary to osteoarthritis. Immediate complications none. Anesthesia: 2% lidocaine plain for skin wheal. After informed consent was obtained, patient brought to the OR placed in the supine position. Skin overlying the area was prepped and draped using betadine. 25-gauge 1/2 inch needle was used for skin wheal over the medial aspect of the joint identified under fluoroscopy. Omnipaque dye was used to confirm needle tip placement within the hip joint space 0.5 mL use of the injection. Subsequently Depomedrol 40mg and Marcaine 0.25% 4ml was injected into the space. No indication of intravascular or intraneuronal needle tip placement or injection was noted post procedure. The needle was removed, patient transferred to Recovery room in stable condition to discharged home after meeting criteria. Anesthesia: Local Surgeon: Padilla Henao Condition: stable
== END 2024-06-23 08:58 | disposition home or self-care (01) ==
LOC: SURGOUT 07:44
PROVIDERS: PCP Family Medicine; Visit Provider Anesthesiology Pain Medicine
DX: M25.551 Pain in right hip (principal)
CPT/HCPCS: 20610; 77002; J0665; J1010; Q9966

== ENCOUNTER 2024-07-02 08:29 | Outpatient (OUT) | payer MEDICARE, SELFPAY ==
--- NOTE | 2024-07-02 08:42 | P.CN_ITS ---
Consult Note: HPI Data of Consult Patient: known to practice within the last 3 years Requesting Physician: Yakelin Landry NP Primary Care Provider: GELY NIEVES Consult Narrative Reason for consult: f/u Narrative: Shirin Marc a pleasant 64 year old female presents for evaluation and management of chronic hip pain, hx of lumbar fusion. Patient recently underwent right hip injection for OA/pain with 100% improvement ongoing. RAFFY 0%. no pain with standing, walking, weight bearing, activity. Utilizing tylenol and tizanidine PRN. continues to engage in HEP as tolerated. cc:: CC: Yakelin Landry NP Review of Systems ROS Status of ROS 10 or more systems reviewed and unremark able except as noted in history and below Musculoskeletal Denies: back pain or joint pain Meds Home Medications and Allergies Home Medications ?Medication ?Instructions ?Recorded ?Confirmed ?Type acetaminophen 325 mg capsule 325 mg PO Q6H PRN pain 05/26/24 06/23/24 History (Tylenol) estradiol 0.5 mg tablet 0.5 mg PO DAILY 05/26/24 06/23/24 History losartan 50 mg tablet 50 mg PO DAILY 05/26/24 06/23/24 History tizanidine 4 mg capsule 4 mg PO .qhs 05/26/24 06/23/24 History Allergies Allergy/AdvReac Type Severity Reaction Status Date / Time lodine Allergy Unknown Unknown Uncoded 06/23/24 08:24 Exam Constitutional Documenting provider has reviewed patient's vital signs: yes Common normals: no apparent distress, oriented x3, healthy appearing, alert and well nourished General appearance: cooperative HENMT Common normals: normocephalic, hearing grossly normal bilaterally and moist oral mucous membranes Head and scalp: normocephalic Eye Common normals: PERRL Pupil: PERRL Neck & C-Spine Common normals: full ROM General: normal visual inspection Chest Common normals: inspection of chest normal Respiratory Common normals: normal respiratory effort, no retractions and no use of accessory muscles Back & Pelvis Lumbar spine/lower back: straight leg raise negative bilaterally; ROM not limited, no pain with ROM, no lumbar spinal tenderness and no paraspinal muscle tenderness Sacroiliac joints: SI joints normal Extremity Right lower extremity: hip joint Other: negative internal and external log roll Neuro Common normals: oriented x3, CN's II-XII intact bilaterally, moves all extremities, no focal motor deficits, no sensory deficits noted and deep tendon reflexes 2+ bilaterally Sensorium/orientation: alert Motor exam: strength 5/5 throughout and no movement abnormalities noted Psych Common normals: mental status grossly normal, thought process normal, cooperative, affect normal, speech normal and activity/motor behavior normal Speech: normal speech Thought process: normal thought process Results Additional Findings Additional findings: If on a controlled substance or opioids, I have checked an [place]AR[place] report on this patient and there are no aberrancies noted in the prescribing history.??If on a controlled substance or opioid a drug screen was completed and reviewed within the last year, and if there has not been a drug screen completed we ordered one today to monitor higher risk, state monitored pain medication use. As part of providing excellent, safe, comprehensive care, the following was completed at our patient's visit: 1. A medication reconciliation and review to ensure accurate knowledge of current/active medications, including asking our patients to inform us about any [id number] medications or herbal remedies/nutritional supplements/alternative remedies. 2. A review to specifically ensure our patients have had annual screening for screening for depression, screening for tobacco use, and screening for unhealthy alcohol use. For concerning screenings had a discussion with the patient, provided patient education, and recommended follow-up with primary care provider when appropriate. If patient noted with a risk of falling, they received education on strength, gait, and balance training to prevent future risk of falling. Assessment and Plan Assessment and Plan (1) Osteoarthritis of right hip: (2) Right hip pain: Plan 100% improvement in right hip pain post right hip injection continue current medications as needed continue HEP as tolerated f/u as needed
--- OUTSIDE RECORDS SUMMARY | 2024-07-02 08:49 | XMS_ITS | CCD ---
Author Organization [facility] Care Team Providers Care Compliance Review Officer Name Role Phone Unknown, Referring Provider Unavailable Unav ailable MODESTO NIEVES Primary Care Physician Adilene Cantor Unavailable Unavailable RACHEL, DR SHIRLEY Davenport Admitting Unavailable RACHEL, DR SHIRLEY Davenport Consulting Unavailable RACHEL, DR SHIRLEY Daven[place] Attending Unavailable RACHEL, DR SHIRLEY Daven[place] Attending Unavailable RACHEL, DR SHIRLEY Daven[place] Admitting Unavailable RACHEL, DR SHIRLEY Daven[place] Consulting Unavailable RACHEL, DR SHIRLEY Daven[place] Admitting Unavailable RACHEL, DR SHIRLEY Davenport Attending Unavailable Johnathan ELMORE, Bk Henriquez Attending Unavailab remedios Nieves DO, Modesto Pedersen Primary Care Unavailab remedios Nieves DO, Modesto Slava Primary Care Unavailab Katarzyna ELMORE, Bk Henriquez Attending Unavailab Katarzyna ELMORE, Bk Henriquez Attending Unavailab remedios Nieves DO, Modesto Pedersen Primary [facility] Unavailab remedios Mann MD, Bk Henriquez Attending Unavailab remedios Nieves DO, Modesto Pedersen [facility] Unavailab remedios Nieves DO, Modesto Pedersen Referring Unavailab Favian Wyatt PA-C Attending Unavail able Renee SANTOYO, [place] [facility] Unavailab Katarzyna ELMORE, Bk Henriquez Attending Unavailab remedios Nieves DO, Modesto Pedersen Primary Care Unavailab RENETTA Alamo Attending Unavailable KAMI HERNÁNDEZ Attending Unavailable MODESTO NIEVES Referring Unavailable KAMI HERNÁNDEZ Referring Unavailable DAGMAR NIEVES Attending Unavailable DAGMAR NIEVES Referring Unavailable KAMI HERNÁNDEZ Referring Unavailable FAVIAN GODWIN Referring Unavailable NOEMI COOK Attending Unavailable FAVIAN GODWIN Referring Unavailable NOEMI COOK Attending Unavailable FAVIAN GODWIN Referring Unavailable REE LIEBERMAN Attending Unavailable KAMI HERNÁNDEZ Attending Unavailable RENETTA FINK Referring Unavailable MANNIE UJAREZ Referring Unavailable MODESTO NIEVES Primary Care Unavailable MANNIE JUAREZ Admitting Unavailable MANNIE JUAREZ Attending Unavailable MANNIE JUAREZ Referring Unavailable MANNIE CURRIE Attending Unavailable MODESTO NIEVES Primary Care Unavailable MANNIE JUAREZ Attending Unavailable MANNIE JUAREZ Referring Unavailable MODESTO NIEVES Primary Care Unavailable DAGMAR NIEVES Attending Unavailable DAGMAR NIEVES Referring Unavailable DAGMAR NIEVES Admitting Unavailable KAMI HERNÁNDEZ Admitting Unavailable KAMI HERNÁNDEZ Attending Unavailable KAMI HERNÁNDEZ Referring Unavailable Allergies Allergy Classification Reported Allergen(s) Allergy Type Date of Onset Reaction(s) Facility (20 sources) Etodolac; Translations: [etodolac] Drug Allergy 9 Unknown, Itching [facility] (2 sources) EtodEasy Tempo; Translations: [Robotronica] Drug Allergy [facility] Repository Medications Current Medications Medication Drug Class(es) Dates Sig (Normalized) Sig (Original) acetaminophen 325 mg / HYDROcodone bitartrate 5 mg oral tablet (18 sources) Opioid Agonist Start: 08-02-2021 [place] 325 mg-5 mg oral tablet See Instructions, for pain, 40 tab(s), Refill(s) 0, 1-2 tab(s) Oral q4hr, [id number], 160, cm, 07/28/21 12:35:00 EDT, Height/Length [...] aspirin 81 mg delayed release oral tablet (9 sources) Platelet Aggregation Inhibitor, Nonsteroidal Anti-inflammatory Drug Start: 05-02-2022 take 1 mg by mouth once daily aspirin 81 mg Oral EC Tab mg tab(s), Oral, Daily, Refills(s) 0 Start Date: 05/02/22 Status: Ordered Biotin (9 sources) Start: 05-02-2022 biotin Oral, Daily, Refills(s) 0 Start Date: 05/02/22 Status: Ordered Calcium (9 sources) Phosphate Binder, Calcium Start: 09-18-2016 take 600 mg by mouth twice daily Calcium 600+D 600 mg, Oral, BID, Refill(s) 0, Prophylaxis Start Date: 09/18/16 Status: Ordered celecoxib 100 mg oral capsule (9 sources) Nonsteroidal Anti-inflammatory Drug Start: 05-31-2021 take 1 capsule by mouth twice daily as needed for pain CeleBREX 100 mg Cap 100 mg = 1 cap(s), Oral, BID, PRN Pain, # 60 cap(s), Refills(s) 0, Pharmacy: [facility] #[id number], 160, cm, 05/11/21 12:28:00 EDT, Height/Length Dosing, 66.8, kg, 05/11/21 12:28:00 EDT, Weight Dosing Start Date: 05/31/21 Status: Ordered CoQ10 100 mg oral capsule (9 sources) Start: 05-02-2022 take 1 mg by mouth once daily CoQ10 100 mg oral capsule mg cap(s), Oral, Daily, Refills(s) 0 Start Date: 05/02/22 Status: Ordered docusate sodium 100 mg oral capsule (9 sources) Start: 08-02-2021 take 1 capsule by mouth twice daily as needed for constipation Colace 100 mg Cap 100 mg = 1 cap(s), Oral, BID, PRN for constipation, # 20 cap(s), Refills(s) 0, Pharmacy: [facility]/pharm[facility] #[id number], 160, cm, 07/28/21 12:35:00 EDT, Height/Length Dosing, 65.3, kg, 07/28/21 12:35:00 EDT, Weight Dosing Start Date: 08/02/21 Status: Ordered estradiol 1 mg oral tablet (18 sources) Estrogen Start: 09-18-2016 estradiol 1 mg [...] Start Date: 05/31/21 Status: Ordered magnesium citrate (9 sources) Start: 05-02-2022 magnesium citrate Oral, Refill(s) 0 Start Date: 05/02/22 Status: Ordered Aleve (9 sources) Nonsteroidal Anti-inflammat ory Drug Start: 05-02-2022 take 1 mg by mouth every twelve hours Aleve mg, Oral, q12hr, Refills(s) 0 Start Date: 05/02/22 Status: Ordered polyethylene glycol 3350 094499 mg / potassium chloride 1480 mg / sodium bicarbonate 5720 mg / sodium chloride 99677 mg powder for oral solution (2 sources) Osmotic Laxative Start: 05-02-2022 NuLYTELY Fernando oral powder for reconstitution See Instructions, 1 EA, Refill(s) 0, Prior to colonoscopy., [facility]pharm[facility] #[id number], 161.2, cm, 05/02/22 10:00:00 EDT, Height/Length Dosing, 67.2, kg, 05/02/22 10:00:00 EDT, Weight Dosing Start Date: 05/02/22 Status: Ordered Vitamin C 500 mg Tab (2 sources) Start: 07-28-2021 take 1 tablet by mouth twice daily Vitamin C 500 mg Tab 500 mg = 1 tab(s), Oral, BID, Prophylaxis Start Date: 07/28/21 Status: Ordered vitamin K2 (7 sources) Start: 07-25-2022 take 1 ug by mouth once daily Vitamin K2 mcg, Oral, Daily, Refill(s) 0 Start Date: 07/25/22 Status: Ordered zinc acetate 50 mg oral capsule (9 sources) Start: 05-02-2022 take 1 capsule by mouth three times daily zinc acetate 50 mg oral capsule 50 mg = 1 cap(s), Oral, TID, on an empty stomach 1 hour before or 2 hours after eating, # 250 cap(s), Refills(s) 0 Start Date: 05/02/22 Status: Ordered Problems Problem Classification Problem Date Documented Date Episodic/Chronic Essential hypertension (18 sources) Hypertensive disorder 07-28-2021 Chronic Genitourinary symptoms and ill-defined conditions (1 source) Unspecified abnormal findings in urine; Translations: [Unspecified abnormal findings in urine] Onset: 04-03-2024 Episodic Osteoarthritis (9 sources) Osteoarthritis 05-31-2021 Chronic Other aftercare (1 source) Encounter for therapeutic drug level monitoring; Translations: [Encounter for therapeutic drug level monitoring] Onset: 04-03-2024 Episodic Other aftercare (1 source) rn long term care (current) use of anticoagulants; Translations: [detention (current) use of anticoagulants] Onset: 04-03-2024 Episodic [...] organs] Onset: 05-02-2022 Episodic Residual codes; unclassified (10 sources) Family history of polyp of colon; Translations: [Family history of colonic polyps] Onset: 05-02-2022 Episodic Residual codes; unclassified (9 sources) Family history of cancer of colon 05-02-2022 Episodic Residual codes; unclassified (1 source) Pain, unspecified; Translations: [Pain, unspecified] Onset: 03-24-2024 Episodic Unclassified (1 source) Consult Onset: 03-31-2024 Unclassified (1 source) Low back pain, unspecified; Translations: [Low back pain, unspecified] Onset: 03-31-2024 Results Test Name Value Interpretation Reference Range Facility CREATININEon 04-11-2024 Creatinine [Mass/Vol] 0.67 mg/dL Normal 0.40-1.00 [facility] Comment on above: Result Comment: METH OD TRACEABLE TO IDMS STANDARD Performed By: #### U A #### [facility] ([id number]) [address], [address] [place] [address] eGFR (CKD-EPI) NON-RACE DEPENDENT >90 Normal >59 [facility] Comment on above: Result Comment: Reported eGFR is based on the CKD-EPI 2020 equation that does not use a race coefficient. Performed By: #### U A #### [facility] ([id number]) [address], [address] [address] HGB AND HCTon 04-11-2024 Hematocrit (Bld) [Volume fraction] 36.1 % Normal 35-47 [facility] Comment on above: Performed By: #### U A #### [facility] ([id number]) [address], [address] [place] [address] Hemoglobin (Bld) [Mass/Vol] 12.3 g/dL Normal 11.7-15.5 [facility] Comment on above: Performed By: #### U A #### [facility] ([id number]) [address], [address] [address] [place] FLUORO GUIDANCE SPINAL PU NCTURE OPERATIVEon [...] Quan Velez on 04/10/2024 2:44 PM Normal [facility] XR SPINE LUMBAR 2 OR 3 VWSon [...] Ventura MD on 04/10/2024 5:16 PM Normal [facility] CBC AND AUTO DIFFon 04-03-20 ABSOLUTE BASOPHIL 0.0 X10E9/L Normal 0.0-0.2 [facility] Comment on above: Performed By: #### Jon KEEN, 94407-1, PINR, 50267-1, CMP #### [facility] ([id number]) [address], [address] [place] [address] ABSOLUTE NEUTROPHIL 2.0 X10E9/L Normal 1.5-6.6 [facility] Comment on above: Performed By: #### Jon KEEN, 49949-2, PINR, 24734-8, CMP #### [facility] ([id number]) [address], [address] [place] [address] Basophils/100 WBC (Bld) 0.9 % Normal [facility] Comment on above: Performed By: #### Jon KEEN, 19564-9, PINR, 35033-8, CMP #### [facility] ([id number]) [address], [address] [place] [address] Eosinophils (Bld) [#/Vol] 0.2 10*3/uL Normal 0.0-0.4 [facility] Comment on above: Performed By: #### Jon KEEN, 21069-4, PINR, 96145-2, CMP #### [facility] ([id number]) [address], [address] [place] [address] Eosinophils/100 WBC (Bld) 4.8 % Normal [facility] Comment on above: Performed By: #### C BCA, 55859-3, PINR, 49552-7, CMP #### [facility] ([id number]) [address], [address] [place] [address] Erythrocyte distribution width (RBC) [Ratio] 13.9 % Normal 11.5-15.0 [facility] Comment on above: Performed By: #### C BCA, 09114-7, PINR, 31339-3, CMP #### [facility] ([id number]) [address], [address] [place] [address] Hematocrit (Bld) [Volume fraction] 40.4 % Normal 35-47 [facility] Comment on above: Performed By: #### C BCA, 52866-5, PINR, 47903-3, CMP #### [facility] ([id number]) [address], [address] [place] [address] Hemoglobin (Bld) [Mass/Vol] 13.8 g/dL Normal 11.7-15.5 [facility] Comment on above: Performed By: #### C BCA, 22535-3, PINR, 56142-4, CMP #### [facility] ([id number]) [address], [address] [place] [address] Lymphocytes (Bld) [#/Vol] 1.1 10*3/uL Normal 1.0-3.5 [facility] Comment on above: Performed By: #### C BCA, 96442-3, PINR, 13012-5, CMP #### [facility] ([id number]) [address], [address] [place] [address] Lymphocytes/100 WBC (Bld) 29.5 % Normal [facility] Comment on above: Performed By: #### C BCA, 64252-2, PINR, 86143-8, CMP #### [facility] ([id number]) [address], [address] [place] [address] MCH (RBC) [Entitic mass] 29.9 pg Normal 27-34 [facility] Comment on above: Performed By: #### Jon KEEN, 01636-8, PINR, 93603-3, CMP #### [facility] ([id number]) [address], [facility] [address] [place] [address] MCHC (RBC) [Mass/Vol] 34.1 g/dL Normal 32-36 [facility] Comment on above: Performed By: #### Jon BCA, 73292-2, PINR, 58264-9, CMP #### [facility] ([id number]) [address], [facility] [address] [place] [address] MCV (RBC) [Entitic vol] 88 fL Normal 80-100 [facility] Comment on above: Performed By: #### Jon BCA, 52519-9, PINR, 41414-2, CMP #### [facility] ([id number]) [address], [facility] [address] [place] [address] Monocytes (Bld) [#/Vol] 0.5 10*3/uL Normal 0-0.9 [facility] Comment on above: Performed By: #### Jon BCA, 53144-5, PINR, 42233-0, CMP #### [facility] ([id number]) [address], [address] [address] Monocytes/100 WBC (Bld) 12.2 % Normal [facility] Comment on above: Performed By: #### Jon BCA, 05872-2, PINR, 45582-4, CMP #### [facility] ([id number]) [address], [facility] [address] [place] [address] Neutrophils/100 WBC (Bld) 52.6 % Normal [facility] Comment on above: Performed By: #### Jon BCA, 63017-5, PINR, 52945-9, CMP #### [facility] ([id number]) [address], [address] [place] [address] Platelet mean volume (Bld) [Entitic vol] 10.0 fL Normal 7-12 [facility] Comment on above: Performed By: #### C BCA, 11354-9, PINR, 06042-7, CMP #### [facility] ([id number]) [address], [facility] [address] [place] [address] Platelets (Bld) [#/Vol] 227 10*3/uL Normal 150-450 [facility] Comment on above: Performed By: #### Jon BCA, 73381-2, PINR, 79832-7, CMP #### [facility] ([id number]) [address] [address] [place] [address] RBC COUNT 4.60 X10E12/L Normal 3.80-5.20 [facility] Comment on above: Performed By: #### Jon BCA, 53261-0, PINR, 01424-7, CMP #### [facility] ([id number]) [address] [address] [place] [address] WBC (Bld) [#/Vol] 3.8 10*3/uL Low 4.0-11.0 [facility] Comment on above: Performed By: #### Jon BCA, 47192-8, PINR, 65827-2, CMP #### [facility] ([id number]) [address], [address] [place] [address] COMPREHENSIVE METABOLIC PANE Rush 04-03-2024 Albumin [Mass/Vol] 3.8 g/dL Normal 3.2-5.3 [facility] Comment on above: Performed By: #### C BCA, 36466-1, PINR, 11754-7, CMP #### [facility] ([id number]) [address] [address] [place] [address] ALP [Catalytic activity/Vol] 81 U/L Normal 39-130 [facility] Comment on above: Performed By: #### C BCA, 57157-4, PINR, 32107-6, CMP #### [facility] ([id number]) [address], [address] [place] [address] ALT [Catalytic activity/Vol] 15 U/L Normal 0-31 [facility] Comment on above: Performed By: #### C BCA, 16727-0, PINR, 53710-0, CMP #### [facility] ([id number]) [address], [address] [place] [address] Anion gap [Moles/Vol] 11 mmol/L Normal 5-15 [facility] Comment on above: Performed By: #### C BCA, 98458-7, PINR, 37878-1, CMP #### [facility] ([id number]) [address], [address] [place] [address] AST [Catalytic activity/Vol] 19 U/L Normal 0-41 [facility] Comment on above: Performed By: #### C BCA, 43811-0, PINR, 61358-0, CMP #### [facility] ([id number]) [address], [address] [place] [address] Bilirubin [Mass/Vol] 0.6 mg/dL Normal 0.3-1.2 [facility] Comment on above: Performed By: #### C BCA, 66684-4, PINR, 11656-6, CMP #### [facility] ([id number]) [address], [address] [place] [address] Calcium [Mass/Vol] 8.6 mg/dL Normal 8.5-10.5 [facility] Comment on above: Performed By: #### C BCA, 88868-6, PINR, 17910-2, CMP #### [facility] ([id number]) [address], [address] [place] [address] Chloride [Moles/Vol] 104 mmol/L Normal 98-109 [facility] Comment on above: Performed By: #### C BCA, 46305-4, PINR, 63755-9, CMP #### [facility] ([id number]) [address], [address] [place] [address] CO2 [Moles/Vol] 26 mmol/L Normal 22-32 [facility] Comment on above: Performed By: #### C BCA, 80630-7, PINR, 62755-2, CMP #### [facility] ([id number]) [address], [facility] [address] [place] [address] Creatinine [Mass/Vol] 0.68 mg/dL Normal 0.40-1.00 [facility] Comment on above: Result Comment: METH OD TRACEABLE TO IDMS STANDARD Performed By: #### C BCA, 53968-8, PINR, 41015-5, CMP #### [facility] ([id number]) [address], [address] [place] [address] eGFR (CKD-EPI) NON-RACE DEPENDENT >90 Normal >59 [facility] Comment on above: Result Comment: Reported eGFR is based on the CKD-EPI 2020 equation that does not use a race coefficient. Performed By: #### C BCA, 13817-1, PINR, 70167-7, CMP #### [facility] ([id number]) [address], [address] [place] [address] Glucose [Mass/Vol] 92 mg/dL Normal 65-99 [facility] Comment on above: Performed By: #### C BCA, 72606-7, PINR, 31511-3, CMP #### [facility] ([id number]) [address], [address] [place] [address] Potassium [Moles/Vol] 3.6 mmol/L Normal 3.5-5.0 [facility] Comment on above: Performed By: #### C BCA, 40876-1, PINR, 01774-9, CMP #### [facility] ([id number]) [address], [address] [place] [address] Protein [Mass/Vol] 6.4 g/dL Normal 6.0-8.0 [facility] Comment on above: Performed By: #### C BCA, 40907-8, PINR, 65270-4, CMP #### [facility] ([id number]) [address], [address] [place] [address] Sodium [Moles/Vol] 141 mmol/L Normal 134-146 [facility] Comment on above: Performed By: #### C BCA, 50840-7, PINR, 69554-9, CMP #### [facility] ([id number]) [address], [facility] [address] [place] [address] Urea nitrogen [Mass/Vol] 8 mg/dL Normal 5-27 [facility] Comment on above: Performed By: #### C BCA, 30757-0, PINR, 32574-8, CMP #### [facility] ([id number]) [address], [address] [place] [address] Lipid 1996 panelon 4 Cholesterol [Mass/Vol] 208 mg/dL High 150-200 [facility] Comment on above: Performed By: #### C BCA, 14954-3, PINR, 08745-2, CMP #### [facility] ([id number]) [address], [address] [place] [address] Cholesterol in HDL [Mass/Vol] 56 mg/dL Normal >39 [facility] Comment on above: Result Comment: HDL <40 mg/dL - High Risk HDL > or = 40mg/dL- Desirable HDL >60 mg/dL - Negative Risk Performed By: #### Jon BCA, 08100-9, PINR, 56639-6, CMP #### [facility] ([id number]) [address], [address] [address] Cholesterol in LDL [Mass/Vol] 128 mg/dL Normal <130 [facility] Comment on above: Result Comment: LDL <100 mg/dL - Desirable LDL >160 mg/dL - High Risk Performed By: #### C BCA, 70718-6, PINR, 29525-2, CMP #### [facility] ([id number]) [address], [address] [place] [address] Cholesterol in VLDL [Mass/Vol] 24 mg/dL Normal 0-30 [facility] Comment on above: Performed By: #### Jon BCA, 73418-8, PINR, 91700-7, CMP #### [facility] ([id number]) [address], [address] [address] CHOLESTEROL:HDL 3.7 Normal 1.0-5.0 [facility] Comment on above: Performed By: #### Jon BCA, 35445-4, PINR, 36006-1, CMP #### [facility] ([id number]) [address], [address] [address] Triglyceride [Mass/Vol] 118 mg/dL Normal 27-150 [facility] Comment on above: Performed By: #### Jon BCA, 46109-9, PINR, 92390-4, CMP #### [facility] ([id number]) [address], [address] [address] PROTIME AND INRon 04-03-2024 INR Coag (PPP) [Relative time] 1.0 {INR} Normal 0.8-1.1 [facility] Comment on above: Performed By: #### C BCA, 70755-4, PINR, 12269-6, CMP #### [facility] ([id number]) [address], [address] [place] [address] PT Coag (PPP) [Time] 11.9 s Normal 9.8-13.2 [facility] Comment on above: Performed By: #### C BCA, 78015-8, PINR, 24911-3, CMP #### [facility] ([id number]) [address], [address] [place] [address] URINALYSISon 04-03-2024 Bilirubin Ql (U) Negative Normal NEG [facility] Comment on above: Performed By: #### U A #### [facility] ([id number]) [address], [address] [place] [address] BLOOD/HGB Negative Normal NEG [facility] Comment on above: Performed By: #### U A #### [facility] ([id number]) [address], [address] [place] [address] Color (U) YELLOW Normal YELLOW [facility] Comment on above: Performed By: #### U A #### [facility] ([id number]) [address], [address] [place] [address] Glucose Ql (U) Negative Normal NEG [facility] Comment on above: Performed By: #### U A #### [facility] ([id number]) [address], [address] [place] [address] Ketones Ql (U) Negative Normal NEG [facility] Comment on above: Performed By: #### U A #### [facility] ([id number]) [address], [address] [place] [address] Leukocyte esterase Test strip Ql (U) Negative Normal NEG [facility] Comment on above: Performed By: #### U A #### [facility] ([id number]) [address], [address] [place] [address] Nitrite Ql (U) Negative Normal NEG [facility] Comment on above: Performed By: #### U A #### [facility] ([id number]) [address], [address] [place] [address] pH (U) 6.5 [pH] Normal 5.0-8.5 [facility] Comment on above: Performed By: #### U A #### [facility] ([id number]) [address], [address] [place] [address] Protein Ql (U) Negative Normal NEG [facility] Comment on above: Performed By: #### U A #### [facility] ([id number]) [address], [address] [place] [address] Specific gravity (U) [Rel density] 1.006 Normal 1.003-1.035 [facility] Comment on above: Performed By: #### U A #### [facility] ([id number]) [address], [address] [place] [address] TURBIDITY CLEAR Normal CLEAR [facility] Comment on above: Performed By: #### U A #### [facility] ([id number]) [address], [address] [place] [address] Urobilinogen (U) [Mass/Vol] mg/dL Normal <1.1 [facility] Comment on above: Performed By: #### U A #### [facility] ([id number]) [address] [place] [address] URINE CULTUREon 04-03-2024 Bacteria identified Cx Nom (U) CULTURE RESULTS 10-50,000 ORGANISMS/mL NORMAL UROGENITAL NIGEL Normal [facility] Comment on above: Performed By: #### 6 30-4 #### [facility] ([id number]) [address], [address] [place] [address] aPTT Coag (PPP) [Time]on aPTT Coag (Bld) [Time] 30 s Normal 26-37 [facility] Comment on above: Performed By: #### C BCA, 24359-9, PINR, 60471-4, CMP #### [facility] ([id number]) [address], [address] [place] [address] XR CHEST 2 VWSon 03-31-2024 XR CHEST 2 VWS XR CHEST 2 VWS PA and lateral chest: HISTORY: Preoperative exam. Anesthesia clearance. 2 views of the chest are obtained. Cardiac and mediastinal contours are within normal limits. Lungs are clear. There is no vascular congestion, effusion, or pneumothorax. IMPRESSION: No acute findings. Finalized by Terrell Ibrahim MD on 03/31/2024 1:46 PM Normal [facility] .UA Microscp Aon 03-25-2024 UA Bacteria Present Abnormal Absent [facility] Comment on above: Performed By: #### . Urinalysis Microscopic Auto #### [address] [address] UA RBC Quant 0 /HPF Normal 0-5 [facility] Comment on above: Performed By: #### . Urinalysis Microscopic Auto #### [address] [place] [address] UA Squepi Cells Quant 1 /HPF Normal 0-29 [facility] Comment on above: Performed By: #### . Urinalysis Microscopic Auto #### [address] [address] UA WBC Quant 0 /HPF Normal 0-5 [facility] Comment on above: Performed By: #### . Urinalysis Microscopic Auto #### [address] [address] .eGFRon 03-25-2024 GFR/1.73 sq M.predicted MDRD (S/P/Bld) [Vol rate/Area] mL/min/{1.73_m2} Normal >=60 [facility] Comment on above: Result Comment: [facility] have implemented the eGFR calculation approach [...] years Performed By: #### E GFR #### [facility] [address] [place] [address] ABO/Rhon 03-25-2024 ABO/Rh ABO/Rh: B POS Normal [facility] Comment on above: Performed By: #### A BORH #### [facility] (UNKNOWN) [address] [place] [address] ABSC Autoon 03-25-2024 ABSC Auto Negative Normal [facility] Comment on above: Performed By: #### A SA #### [facility] (UNKNOWN) [address] [place] [address] CBC w/ Diffon 03-25-2024 Erythrocyte distribution width (RBC) [Ratio] 13.3 % Normal 11.6-14.8 [facility] Comment on above: Performed By: #### C BC #### [facility] [address] [place] [address] Hematocrit (Bld) [Volume fraction] 40.6 % Normal 36.0-46.0 [facility] Comment on above: Performed By: #### C BC #### [address] [address] Hemoglobin (Bld) [Mass/Vol] 13.5 g/dL Normal 12.0-16.0 [facility] Comment on above: Performed By: #### C BC #### [address] [address] MCH (RBC) [Entitic mass] 29.1 pg Normal 27.0-35.0 [facility] Comment on above: Performed By: #### C BC #### [address] [address] MCHC 33.4 % Normal 31.0-37.0 [facility] Comment on above: Performed By: #### C BC #### [address] [address] MCV (RBC) [Entitic vol] 87.3 fL Normal 80.0-100.0 [facility] Comment on above: Performed By: #### C BC #### [address] [address] Platelet 235 x10*3/mcL Normal 150-450 [facility] Comment on above: Performed By: #### C BC #### [address] [address] Platelet mean volume (Bld) [Entitic vol] 9.7 fL Normal 6.7-10.6 [facility] Comment on above: Performed By: #### C BC #### [address] [address] RBC 4.65 x10*6/mcL Normal 3.80-5.20 [facility] Comment on above: Performed By: #### C BC #### [address] [address] WBC 4.4 x10*3/mcL Low 4.5-11.0 [facility] Comment on above: Performed By: #### C BC #### [address] [address] CMPon 03-25-2024 Albumin [Mass/Vol] 3.9 g/dL Normal 3.2-4.9 [facility] Comment on above: Performed By: #### C OMP #### [address] [address] Albumin/Globulin [Mass ratio] 1.2 {ratio} Normal 1.1-2.2 [facility] Comment on above: Performed By: #### C OMP #### [address] [address] Alk Phos 87 IU/L Normal 32-91 [facility] Comment on above: Performed By: #### C OMP #### [address] [address] ALT [Catalytic activity/Vol] 26 U/L Normal 14-54 [facility] Comment on above: Performed By: #### C OMP #### [address] [address] Anion gap [Moles/Vol] 10 mmol/L Normal 4-12 [facility] Comment on above: Performed By: #### C OMP #### [address] [address] AST [Catalytic activity/Vol] 24 U/L Normal 15-41 [facility] Comment on above: Performed By: #### C OMP #### [address] [address] Bili Total 0.6 mg/dL Normal 0.3-1.2 [facility] Comment on above: Performed By: #### C OMP #### [address] [address] Calcium [Mass/Vol] 8.7 mg/dL Normal 8.5-10.3 [facility] Comment on above: Performed By: #### C OMP #### [address] [address] Chloride [Moles/Vol] 106 mmol/L Normal 98-110 [facility] Comment on above: Performed By: #### C OMP #### [address] [address] CO2 [Moles/Vol] 24 mmol/L Normal 22-32 [facility] Comment on above: Performed By: #### C OMP #### [address] [address] Creatinine [Mass/Vol] 0.72 mg/dL Normal 0.44-1.03 [facility] Comment on above: Performed By: #### C OMP #### [address] [address] Glucose [Mass/Vol] 92 mg/dL Normal 70-99 [facility] Comment on above: Performed By: #### C OMP #### [address] [address] Potassium [Moles/Vol] 3.7 mmol/L Normal 3.4-4.8 [facility] Comment on above: Performed By: #### C OMP #### [address] [address] Protein [Mass/Vol] 7.2 g/dL Normal 6.5-8.1 [facility] Comment on above: Performed By: #### C OMP #### [address] [address] Sodium [Moles/Vol] 140 mmol/L Normal 133-142 [facility] Comment on above: Performed By: #### C OMP #### [address] [address] Urea nitrogen [Mass/Vol] 11 mg/dL Normal 8-26 [facility] Comment on above: Performed By: #### C OMP #### [address] [address] Urea nitrogen/Creatinine [Mass ratio] 15.3 mg/mg Normal 10.0-20.0 [facility] Comment on above: Performed By: #### C OMP #### [address] [address] Diff Autoon 03-25-2024 Baso Absolute 0.0 x10*3/mcL Normal 0.0-0.2 [facility] Comment on above: Performed By: #### . Automated Diff #### [address] [address] Basophils/100 WBC (Bld) 0.6 % Normal 0.0-1.5 [facility] Comment on above: Performed By: #### . Automated Diff #### [address] [address] Eos Absolute 0.2 x10*3/mcL Normal 0.0-0.4 [facility] Comment on above: Performed By: #### . Automated Diff #### [address] [address] Eosinophils/100 WBC (Bld) 3.5 % Normal 0.0-5.4 [facility] Comment on above: Performed By: #### . Automated Diff #### [address] [address] Lymph Absolute 1.1 x10*3/mcL Normal 1.0-4.8 [facility] Comment on above: Performed By: #### . Automated Diff #### [address] [address] Lymphocytes/100 WBC (Bld) 24.2 % Low 27.2-40.8 [facility] Comment on above: Performed By: #### . Automated Diff #### [address] [address] [place] Absolute 0.2 x10*3/mcL Normal 0.1-1.1 [facility] Comment on above: Performed By: #### . Automated Diff #### [address] [address] Monocytes/100 WBC (Bld) 5.0 % Normal 3.7-11.9 [facility] Comment on above: Performed By: #### . Automated Diff #### [address] [address] Neutro Absolute 2.9 x10*3/mcL Normal 1.8-7.7 [facility] Comment on above: Performed By: #### . Automated Diff #### [id number] Neutro Auto 66.7 % Normal 47.2-70.8 [facility] Comment on above: Performed By: #### . Automated Diff #### [id number] PTon 03-25-2024 PT Coag (PPP) [Time] 10.7 s Normal 9.2-12.0 [facility] Comment on above: Performed By: #### P TINR #### [id number] INR Coag (PPP) [Relative time] 1.0 {INR} Normal <=3.5 [facility] Comment on above: Result Comment: INR has no normal range. INR Therapeutic range is: 2.0-3.0 (AF, CVA, TIAs, DVT prophylaxis, acute DVT) 2.5-3.5 ([facility] heart valves, recurrent thrombosis/emboli) Performed By: #### P TINR #### [id number] PTTon 03-25-2024 aPTT Coag (Bld) [Time] 23.9 s Normal 19.5-28.2 [facility] Comment on above: Performed By: #### . Urinalysis Microscopic Auto #### [id number] UA w Culture if Indon 2023 Color (U) Colorless Normal Yellow [facility] Comment on above: Performed By: #### U CI #### [id number] Ketones Ql (U) Negative Normal Negative [facility] Comment on above: Performed By: #### U CI #### [id number] UA Blood Negative Normal Negative [facility] Comment on above: Performed By: #### U CI #### [facility] [address] [place] [address] UA Clarity Clear Normal Clear [facility] Comment on above: Performed By: #### U CI #### [facility] [address] [place] [address], [place] [address] UA Glucose Normal Normal Negative [facility] Comment on above: Performed By: #### U CI #### [address] [place] [address] UA Leukocyte Esterase Negative Normal Negative [facility] Comment on above: Performed By: #### U CI #### [facility] [address] [place] [address], [place] [address] UA Nitrite Negative Normal Negative [facility] Comment on above: Performed By: #### U CI #### [address] [place] [address] UA pH 6.0 Normal 4.5 - 7.8 [facility] Comment on above: Performed By: #### U CI #### [address] [place] [address] UA Protein Negative Normal Negative [facility] Comment on above: Performed By: #### U CI #### [address] [place] [address] UA Source Clean Catch Normal [facility] Comment on above: Performed By: #### U CI #### [facility] [address] [place] [address], [place] [address] UA Spec Grav 1.004 Normal 1.003-1.035 [facility] Comment on above: Performed By: #### U CI #### [address] [place] [address] UA Urobilinogen Normal Normal 0.2 - 1.0 [facility] Comment on above: Performed By: #### U CI #### [address] [place] [address] Urobilinogen (U) [Mass/Vol] Negative Normal Negative [facility] Comment on above: Performed By: #### U CI #### [address] [place] [address] Neurosurgery Office/Clinic Alisha ramos 03-19-2024 Neurosurgery Office/Clinic Note Chief Complaint Patient [...] a history of right L4-5 laminectomy in [place] in 2015, did well after that surgery. [...] Prednisone 20 mg x 5 days, Flexeril, [place], heat, meloxicam Medical history: as listed Social history: , retired. No tobacco, alcohol or drug use Medications: As listed Surgical history: Right L4-5 laminectomy in [place], 2016 Left knee replacement Family history: As [...] Biopsy of breast (1997) Abdominal hysterectomy (2006) [place] Knee Scope, Single Menisectomy (2008) [place] Nasal/Sinus Endoscopy, open maxill sinus (2012) History of total knee arthroplasty (05/31/2021) Medications biotin, 1 mg, Oral, Daily cholecalcife (more content not included)... Normal [facility] XR LUMBAR SPINE AP/LAT/FLEX/ EXTon 03-12-2024 XR [...] with flexion/extension TRANSCRIBED BY: ELECTRONICALLY SIGNED BY: Slava De Jesus MD Normal Not Available Neurosurgery Office/Clinic N oteon 03-11-2024 Neurosurgery Office/Clinic Note Chief Complaint Cyst on spine consult History of Present Illness This is a very pleasant 64 year old female seen in referral at the request of Kami Hernández CNP for lumbar radiculopathy. She has a history of right L4-5 laminectomy in [place] in 2016, did well after that surgery. [...] Prednisone 20 mg x 5 days, Flexeril, [place], heat, meloxicam Medical history: as listed Social history: , retired. No tobacco, alcohol or drug use Medications: As listed Surgical history: Right L4-5 laminectomy in [place], 2016 Left knee replacement Family history: As [...] foraminal narrowing. 3. Right L4-5 laminectomy in [place], 2015 for previous synovial cyst Plan: 1. [...] tolerate it. She received a prescription for [place] last evening from her PCP. I recommended the dynamic x-rays and PT. All questions answered. Patient is in agreement with this plan. Time Spent with the Patient I have personally spent 58 minutes on this date, directly related to today's patient visit, including pre and post visit work, for this date of service. Ti (more content not included)... Normal [facility] Provider Letteron 03-11-2024 Provider Letter Modesto Nieves DO [address] [place] [address] Re: Shirin Marc Date of Visit: 03/11/2024 Dear Modesto Nieves DO, Thank you for your referral and allowing me to contribute to the care of your patient: Shirin Marc. Attached is my office note where you will find my assessment and recommendations from our encounter. My office?s contact information: [facility] [address] [place], [phone] Let me know if you have any questions or concerns. Sincerely, DAT Dejesus Providers: The following document(s) were included in the letter: March 11, 2024 12:19:37 EDT - (03/11/2024) Neurosurgery Office Visit Note Normal [facility] MR LUMBAR SPINE WO CONTRASTo n 02-28-2024 [...] Slava De Jesus MD Normal Not Available XR Hip Complete Right*on XR Hip Complete [...] by ALEX CABALLERO on 04/05/2022 1102 Normal [facility] Initial Visit ([facility]edic [facility])on 05-19-2021 Initial Visit (Orthopaedic Surgery) Chief Complaint [...] very comfortable with her doctor out in [place] so she is can follow back up [...] grammatical areas may persist related to the [employer] software Dagmar Castro MD . Active Problems Problems Left knee pain, unspecified chronicity (679.46) (M90.793) Signatures Electronically signed by : Dagmar Castro MD; May 21 2021 7:03AM EST (Author) Normal [facility] Vital Signs Date Time Vital Sign Value Performing Clinician Facility 07-25-2022 08:32-0400 Blood Pressure Location [facility] 07-25-2022 08:32-0400 Diastolic blood pressure 93 mm[Hg] [facility] 07-25-2022 08:32-0400 Heart rate 65 /min [facility] 07-25-2022 08:32-0400 SaO2% (BldA) [Mass fraction] 99 % [facility] 07-25-2022 08:32-0400 Systolic blood pressure 151 mm[Hg] [facility] 05-02-2022 10:00-0400 Diastolic blood pressure 82 mm[Hg] Erna Martin [facility] 05-02-2022 10:00-0400 Mean blood pressure 106 mm[Hg] Erna Martin [facility] 05-02-2022 09:55-0400 Blood Pressure Location Erna Martin [facility] 05-02-2022 09:55-0400 Body temperature 97.34 [degF] Erna Martin [facility] 05-02-2022 09:55-0400 Diastolic blood pressure 89 mm[Hg] Erna Martin [facility] 05-02-2022 09:55-0400 Heart rate 55 /min Erna Martin [facility] 05-02-2022 09:55-0400 SaO2% (BldA) [Mass fraction] 99 % Erna Martin [facility] 05-02-2022 09:55-0400 Systolic blood pressure 154 mm[Hg] Erna Martin [facility] Encounters Encounter Date Encounter Type Care Provider Facility Start: 06-29-2024 End: 06-29-2024 ambulatory [facility] Facility:[facility] Start: 06-29-2024 End: 06-29-2024 Patient encounter procedure DAGMAR NIEVES [facility] Start: 04-12-2024 End: 04-12-2024 Evaluation and management of inpatient MANNIE CURRIE [facility] Start: 04-10-2024 End: 04-12-2024 Evaluation and management of inpatient [facility] Start: 04-10-2024 End: 04-11-2024 ambulatory [facility] Start: 04-03-2024 End: 04-03-2024 ambulatory [facility] Start: 04-01-2024 End: 04-01-2024 ambulatory KAMI HERNÁNDEZ Not Available Start: 03-31-2024 End: 03-31-2024 ambulatory [facility] Start: 03-31-2024 Encounter for other preprocedural examination [facility] Start: 03-31-2024 Encounter for other preprocedural examination [facility] Start: 03-31-2024 End: 03-31-2024 ambulatory [facility] Start: 03-25-2024 End: 03-25-2024 ambulatory Modesto Nieves DO Facility:[facility] Start: 03-24-2024 ambulatory [facility] Start: 03-20-2024 ambulatory Bk Mann MD F acility:[facility] Start: 03-19-2024 ambulatory Bk Mann MD F acility:[facility] Start: 03-19-2024 End: 03-19-2024 ambulatory Bk Mann MD Facility:[facility] Start: 03-13-2024 End: 03-13-2024 ambulatory NOEMI COOK Not Available Start: 03-12-2024 End: 03-12-2024 ambulatory NOEMI COOK Not Available Start: 03-12-2024 End: 03-12-2024 ambulatory FAVIAN GODWIN Not Available Start: 03-11-2024 End: 03-11-2024 ambulatory Modesto Nieves DO Facility[facility] Start: 03-05-2024 End: 03-05-2024 ambulatory KAMI HERNÁNDEZ Not Available Start: 03-03-2024 End: 03-03-2024 ambulatory DAGMAR NIEVES Not Available Start: 02-28-2024 End: 02-28-2024 ambulatory KAMI HERNÁNDEZ Not Available Start: 06-07-2023 End: 06-07-2023 Patient encounter procedure DORON BAUMANN [facility] Start: 06-06-2023 End: 06-06-2023 Patient encounter procedure DAGMAR NIEVES [facility] Start: 05-17-2023 End: 05-18-2023 Patient encounter procedure SELF REFERRAL [facility] Start: 05-07-2023 End: 05-28-2023 Pre-admission assessment Tyler Stern [facility] Start: 02-20-[address] SHIRLEY RAMOS Facilit y:[facility] Start: 07-25-2022 End: 07-25-2022 Patient encounter procedure Herberth GIBBS [facility] Start: 06-21-2022 End: 10-05-[address] SHIRLEY RAMOS Facility:[facility] Start: 05-15-2022 End: 05-15-2022 Lab Drop off Herberth GIBBS [facility] Start: 05-02-2022 End: 05-02-2022 Patient encounter procedure Erna Martin [facility] Start: 03-06-2022 End: 06-15-[address] SHIRLEY RAMOS Facility:[facility] Start: 05-19-2021 Patient encounter procedure Referring Provider Unknown [facility] Work Phone: Procedures Date Procedure Procedure Detail Performing Clinician Start: 05-15-2022 Colonoscopy Herberth Pedro Start: 08-02-2021 Manipulation of knee joint under general anesthesia Erna Martin Start: 05-31-2021 Arthroplasty of knee Monico Martin Start: 09-18-2016 Colonoscopy Erna pascual Start: 01-06-2016 Laminectomy Erna pascual Start: 10-07-2006 Hysterectomy Erna pascual Start: 10-07-1997 Biopsy of breast Erna chen Start: 10-07-1991 Biopsy of breast Erna chen Start: 10-07-1975 Closed fracture of r ib (disorder) Erna Martin Start: 10-07-1975 Fracture of skull (disorder) Erna Martin Arthroscopy of knee Erna Higgins History of nasal sin us surgery Erna Martin Immunizations Immunization Date Immunization Notes Care Provider Hedy [facility] 07-20-2022 influenza virus vaccine, unspecified formulation [facility] 08-29-2021 SARS-CoV-2 (COVID-19 ) mRNA BNT-162b2 vax [facility] 07-20-2021 influenza virus vaccine, unspecified formulation [facility] 01-10-2021 Pfizer-BioNTech COVID-19 Vacc 30 MCG/0.3ML Intramuscular Suspension Referring Provider Unknown [facility] 12-19-2020 Pfizer-BioNTech COVID-19 Vacc 30 MCG/0.3ML Intramuscular Suspension Referring Provider Unknown [facility] 07-07-2020 influenza virus vaccine, unspecified formulation Kevin SALAM [facility] 07-07-2020 Influenza, injectabl e, Madin Durham Canine Kidney, quadrivalent with preservative Referring Provider Unknown [facility] Work Phone: 07-30-2019 influenza virus vaccine, unspecified formulation Kevin SALAM [facility] 07-30-2019 Influenza, injectabl e, Madin Pricila Canine Kidney, preservative free, quadrivalent Referring Provider Unknown [facility] DO Work Phone: 07-07-2019 influenza virus vaccine, unspecified formulation Kevin SALAM [facility] 07-07-2019 influenza, injectabl e, quadrivalent, preservative free Referring Provider Unknown [facility] DO Work Phone: 02-16-2019 zoster vaccine recombinant Referring Provider Unknown [facility] 11-13-2018 zoster vaccine recombinant Referring Provider Unknown [facility] 08-01-2018 influenza virus vaccine, live, attenuated, for intranasal use Kevin SALAM [facility] 08-01-2018 influenza, live, intranasal, quadrivalent Referring Provider Unknown [facility] DO Work Phone: 07-11-2018 influenza virus vaccine, unspecified formulation Kevin SALAM [facility] 07-11-2018 influenza, injectabl e, quadrivalent, preservative free Referring Provider Unknown [facility] DO Work Phone: 07-15-2017 influenza virus vaccine, unspecified formulation Kevin SALAM [facility] 07-15-2017 influenza, injectabl e, quadrivalent, contains preservative Referring Provider Unknown [facility] DO Work Phone: 08-14-2016 influenza virus vaccine, unspecified formulation Herberth COSMEAM [facility] 08-14-2016 influenza, injectabl e, quadrivalent, preservative free Referring Provider Unknown [facility] Work Phone: Payers Date Payer Category Payer Medicare 2023 Medicare [id number] 2023 Unknown 2023 Unknown [id number] 2018 Private Health Insurance [id number] Self-pay 1958 Unknown [id number] 2.16.84 0.1.395024.3.579.2.593 1958 Unknown [id number] 2.16.84 0.1.438609.3.579.2.593 1958 Unknown [id number] 2.16.84 0.1.779811.3.579.2.593 1958 Unknown [id number] 2.16. 840.1.763101.3.579.2.196 1958 Unknown [id number] 2.16. 840.1.327719.3.579.2.196 1958 Unknown [id number] 2.16. 840.1.597093.3.579.2.196 1958 Unknown [id number] 2.16. 840.1.405696.3.579.2.196 1958 Unknown [id number] 2.16. 840.1.148898.3.579.2.196 1958 Unknown [id number] 2.16. 840.1.444389.3.579.2.196 1958 Unknown [id number] 2.16. 840.1.792232.3.579.2.196 1958 Unknown [id number] 2.16.8 40.1.410084.3.579.2.1286 1958 Unknown [id number] 2.16.8 40.1.382609.3.579.2.1285 1958 Unknown [id number] 2.16.8 40.1.630441.3.579.2.1285 1958 Unknown [id number] 2.16.84 0.1.190876.3.579.2.1258 1958 Unknown [id number] 2.16.84 0.1.577638.3.579.2.1258 1958 Unknown [id number] 2.16.84 0.1.109591.3.579.2.1258 1958 Unknown [id number] 2.16.84 0.1.893374.3.579.2.1258 1958 Unknown [id number] 2.16.84 0.1.737247.3.579.2.1258 1958 Unknown [id number] 2.16.84 0.1.296486.3.579.2.1258 1958 Unknown [id number] 2.16.84 0.1.936155.3.579.2.1258 1958 Unknown [id number] 2.16.84 [id number] 1960 Unknown [id number] 2.16.84 0.1.785073.3.579.2.1258 1958 Unknown [id number] 2.16.8 40.1.247714.3.579.2.1285 1958 Unknown [id number] 2.16.8 40.1.731448.3.579.2.1285 1958 Unknown [id number] 2.16.8 40.1.389031.3.579.2.1285 1958 Unknown [id number] 2.16.8 40.1.449609.3.579.2.1286 1958 Unknown [id number] 2.16.8 40.1.248838.3.579.2.1286 1958 Unknown [id number] 2.16.8 40.1.771139.3.579.2.1286 1958 Unknown [id number] 2.16.8 40.1.754666.3.579.2.727 1958 Unknown [id number] 2.16.8 40.1.335509.3.579.2.727 Social History Date Type Detail Facility Start: 05-02-2022 End: 07-25-2022 Tobacco smoking status Never smoked tobacco (finding) [facility] Tobacco smoking status Never Daniale [facility] Sex Assigned At Female [facility] Medical Equipment Procedure Code Equipment Code Equipment Origin al Text Equipment Identifier Dates KNEE TOTAL ROBOT ARTHROPLASTY Fab SANTOYOSilvioToby Fallon 05/31/21 Non Biological Knee L [id number] [id number] [facility] Start: 05-31-2021 Functional Status Date Assessment Result Facility 05-02-2022 Functional Status N/A [facility] Hospital Discharge instructions 05-02-2022 [...] including vitamins, herbs, eye drops, creams, and [id number] medicines. Any problems you or family members [...] 09/20/2001 Document Revised: 07/16/2018 Document Reviewed: 12/04/2016 [employer] Patient Education 2020 Numerous Follow Up Care 04/05/2022 12:55:09 With:Erna Martin CNP Address: When:1 to 2 weeks Comments:Following colonoscopy. [facility] Evaluation + Plan note Radiology Note Date & Type Note Facility Evaluation + Plan note Future Appointments Appointment Date:05/14/2022 08:15:00 AM Scheduled Provider: Location:FT.MAMMOGRAM Appointment Type:MA Screen (FT) Future Scheduled TestsMA Mamm Screen w/CAD if perf and 3D [place] 05/14/22 [facility] Evaluation + Plan note Radiology Note Date & Type Note Facility Evaluation + Plan note Future Appointments Appointment Date:06/07/2023 06:00:00 PM Scheduled Provider: Location:FT.MRI Appointment Type:MRI Hip/Femur (FT) Future Scheduled TestsMRI Hip w/o Contrast Right 06/07/[address] [facility] Hospital course Narrative Note Date & Type Note Facility Hospital course Narrative No data available for this section [facility] Hospital Discharge instructions Note Date & Type Note Facility Hospital Discharge instructions No data available for this section [facility] Progress note Note Date & Type Note Facility Progress note No data available for this section [facility] Chief Complaint Lt Knee Pain - X-Rays Today Summary Purpose Family History No Family History Records FoundNo Family History Records FoundNo Family History Records FoundNo Family History Records FoundNo Family History Records FoundNo Family History Records FoundNo Family History Records Found No data available for this section No data available for this section No Family History Records Found Advance Directives No Advanced Directives Records FoundNo Advanced Directives Records FoundNo Advanced Directives Records FoundNo Advanced Directives Records FoundNo Advanced Directives Records FoundNo Advanced Directives Records FoundNo Advanced Directives Records FoundNo Advanced Directives Records Found Additional Source Comments INFORMATION SOURCE (unrecogn ized section and content) DATE CREATED AUTHOR 05/22/2021 [employer] DATE CREATED AUTHOR AUTHOR'S ORGANIZ ATION 04/06/2022 [facility] DATE CREATED AUTHOR AUTHOR'S ORGANIZ ATION 02/14/2023 [facility] DATE CREATED AUTHOR AUTHOR'S ORGANIZ ATION 03/27/2024 [facility] DATE CREATED AUTHOR AUTHOR'S ORGANIZ ATION 04/02/2024 [facility] DATE CREATED AUTHOR AUTHOR'S ORGANIZ ATION 04/02/2024 [facility] EPIC DATE CREATED AUTHOR AUTHOR'S ORGANIZ ATION 04/12/2024 [facility] DATE CREATED AUTHOR AUTHOR'S ORGANIZ ATION 06/30/2024 [facility] (unrecognized sect ion and content) Personnel Name: MODESTO NIEVES DO Address: [address] [place] [address] [address], [address] Name: Adilene Cantor Personnel Name: MODESTO NIEVES DO Address: [address] [place] [address] [address], [address] Name: Adilene Cantor Personnel Name: MODESTO NIEVES DO Address: Address: [address] [place] [address] [address], [address] Name: Adilene Cantor Personnel Name: MODESTO NIEVES DO Address: Address: [address] [place] [address] [address], [facility] Name: Adilene Cantor Personnel Name: MODESTO NIEVES DO Address: Address: [address] [place] [address] [address], [facility] Name: Adilene Cantor Personnel Name: MODESTO NIEVES DO Address: Address: [address] [place] [address] [address], [address] Name: Adilene Cantor Personnel Name: MODESTO NIEVES DO Address: Address: [address] [place] [address] Name: Adilene Cantor Personnel Name: MODESTO NIEVES DO Address: Address: [address] [place] [address] [address] [place] [id number] Name: Devaughn Adilene Pedro Personnel Name: MODESTO NIEVES DO Address: Address: [facility] [address], [facility] [address] Name: Adilene Cantor FOR RECORDS PERTAINING TO [...] BE BASED ON THE PRIMARY CLINICAL RECORDS. [facility] [employer] [facility]. provides no warranty or guarantee of the accuracy or completeness of information in this document.
== END 2024-07-02 08:30 | disposition home or self-care (01) ==
LOC: PM 08:29
PROVIDERS: PCP Family Medicine; Visit Provider Nurse Practitioner
DX: M16.11 Unilateral primary osteoarthritis, right hip (principal); M25.551 Pain in right hip
CPT/HCPCS: G0463